=== PATIENT | female | born 1950 | race Caucasian/White ===

== ENCOUNTER 2021-06-14 18:20 | Observation (INO) | payer MEDICARE ==
[2021-06-14] MEDS ORDERED: Pepcid 20 MG VIAL IV ONE ×2 (18:32→18:59)
[2021-06-14] MEDS ORDERED: MORPHINE SULFATE 4 MG INJ IV ONE ×2 (18:32→21:08)
[2021-06-14] MEDS ORDERED: GI COCKTAIL 45 ML (Maalox/Lidocaine) PO ONE (18:32)
[2021-06-14] MEDS ORDERED: BABY ASPIRIN 81 MG CHEW PO ONE (18:32)
[2021-06-14] MEDS ORDERED: Zofran 4 MG/2 ML VIAL IV ONE (18:32)
--- NOTE | 2021-06-14 18:44 | ERPHSYRPT ---
<HOANG RIDDLE - Last Filed: 06/15/21 00:38> - History of Present Illness Time Seen by Provider: 06/14/21 18:25 Allergies/Adverse Reactions: Penicillins Allergy (Verified 06/14/21 18:35) Home Medications: Lisinopril/Hydrochlorothiazide [Lisinopril-Hctz 20-12.5 mg Tab] 1 each PO DAILY 06/14/21 [History] - Progress Progress Note: 06/15/21 00:28 Assumed care of pt at shift change w mid-sternal chest pain described as burn ing. Pt is morbidly obese w a h/o HTN. She states that she has had intermittant chest burning in the past. She denies N/V/diaphoresis/CAD/IN/DM/Tobacco use/Hyperlipidemia. Initial EKG Sinus tach/Normal QT-QTc/Non-specific St-[place] changes. Initial Trop neg but 2nd trop wnl but elevating. 2nd EKG NSR/R90/Flat Tw[place]. Pt's 3rd Trop positive. Pt accepted by Dr. Terry. 06/15/21 00:38 Discussed with : Abisai Counseled pt/family regarding: lab results, diagnosis, rad results - Departure Departure Disposition: Observation Clinical Impression: NSTEMI (non-ST elevated myocardial infarction) Condition: Fair <BREANA BORJA - Last Filed: 06/15/21 19:20> - History of Present Illness Historian: patient Exam Limitations: no limitations Patient Subjective Stated Complaint: Pt c/o of rapid heart rate, burning in the chest and acid reflux Triage Nursing Assessment: Pt brought to the ER by her , hypertensive, tachycardic, rates chest pain or burning as 01/22, denies cardiac history, totally blind, left leg is larger than the right, pain began yesterday but it got worse today, skin n/w/d, pulses normal, no difficulties breathing Physician History: 70 years old morbidly obese female with history of hypertension, legal blindness bilateral presented in the ER with substernal chest pain/burning sensation which was dairies yesterday for a little while and continuous since afternoon today, moderate intensity, nonradiating with associated palpitations/racing of heart without shortness of breath. Patient denies any history of CAD, arrhythmia or any cardiac work-up done in the recent past. Denies any fever chills cough or sick contact. Timing/Duration: today, yesterday, constant, gradual onset, worse Activities at Onset: rest Quality: burning Location: substernal, central Chest Pain Radiation: no radiation Severity of Pain-Max: moderate Severity of Pain-Current: moderate Modifying Factors: Improves With: nothing Associated Symptoms: nausea, No shortness of breath, No cough Prior Chest Pain/Cardiac Workup: no prior chest pain, no prior cardiac workup Nitro Today/Relief: no nitro taken today Aspirin Treatment Today: no aspirin today Travel Risk - International Travel Have you traveled outside of the country in past 3 weeks: No - Coronavirus Screening Are you exhibiting any of the following symptoms?: No Close contact with a COVID-19 positive Pt in past 14-21 Days: No - Vaccine Status Have you recieved a Covid-19 vaccination: No - Review of Systems Constitutional: No Symptoms Eyes: Other Ears, Nose, & Throat: No Symptoms Respiratory: No Symptoms Cardiac: Chest Pain Abdominal/Gastrointestinal: No Symptoms Genitourinary Symptoms: No Symptoms Musculoskeletal: No Symptoms Skin: No Symptoms Neurological: No Symptoms Psychological: No Symptoms Endocrine: No Symptoms Hematologic/Lymphatic: No Symptoms Immunological/Allergic: No Symptoms - Past Medical History Pertinent Past Medical History: Yes Cardiac History: Hypertension Psycho-Social History: Anxiety - Past Surgical History Past Surgical History: Yes Gastrointestinal: Appendectomy, Cholecystectomy Female Surgical History: Hysterectomy - Social History Smoking Status: Never smoker Exposure to second hand smoke: No Drug Use: none Patient Lives Alone: No - Nursing Vital Signs Nursing Vital Signs: Initial Vital Signs Temperature 99.0 F 06/14/21 18:24 Pulse Rate 124 H 06/14/21 18:24 Respiratory Rate 23 06/14/21 18:24 Blood Pressure 193/95 06/14/21 18:24 O2 Sat by Pulse Oximetry 97 06/14/21 18:24 Pain Scale Pain Intensity 2 - Physical Exam General Appearance: no apparent distress, alert Eye Exam: No scleral icterus Ears, Nose, Throat Exam: normal ENT inspection, TMs normal, pharynx normal Neck Exam: normal inspection, non-tender, full range of motion Respiratory Exam: normal breath sounds, lungs clear Cardiovascular Exam: normal heart sounds, tachycardia Gastrointestinal/Abdomen Exam: soft, normal bowel sounds, No tenderness Back Exam: normal inspection, normal range of motion Extremity Exam: normal inspection, normal range of motion Neurologic Exam: alert, oriented x 3, cooperative, normal mood/affect, No fly winder II-XII nml as tested, No motor deficits Skin Exam: normal color SpO2 Interpretation: normal SpO2: 97 O2 Delivery: Room Air - Course EKG Interpreted by Me: RATE ([id number]), Sinus Tach, NORMAL AXIS, NORMAL INTERVALS, N on-specific ST Changes, Other (ST depression in lateral leads) Ordered Tests: Active Orders 24 hr Category Date Time Status Farm Management Teacher STAT Care 06/14/21 18:32 Completed EKG-ER Only STAT Care 06/14/21 18:32 Completed EKG-ER Only STAT Care 06/14/21 23:56 Completed IV Insertion STAT Care 06/14/21 18:32 Completed Heart-Healthy Diet Diet 06/15/21 Breakfast Active CHEST 1 VIEW (PORTABLE) Stat Exams 06/14/21 18:32 Completed CHEST WITHOUT CONTRAST [CT] Stat Exams 06/14/21 20:45 Completed CBC W DIFF Stat Lab 06/14/21 18:45 Completed CK-Creatinine Phosphokinase Stat Lab 06/14/21 18:45 Completed CMP Stat Lab 06/14/21 18:45 Completed D-DIMER QUANTITATIVE Stat Lab 06/14/21 18:45 Completed LIPID PROFILE AM.LAB Lab 06/15/21 05:40 Completed NT PRO BNP Stat Lab 06/14/21 18:45 Completed PROTIME WITH INR Stat Lab 06/15/21 00:37 Completed PTT Stat Lab 06/15/21 00:37 Completed TROPONIN Q3H Lab 06/15/21 02:50 Completed TROPONIN Q3H Lab 06/15/21 05:40 Completed TROPONIN Q3H Lab 06/15/21 09:40 Completed TROPONIN Q3H Lab 06/15/21 13:40 Completed TROPONIN Q3H Lab 06/14/21 18:45 Completed TROPONIN Q3H Lab 06/14/21 20:50 Completed TROPONIN Q3H Lab 06/14/21 23:45 Completed UA W/RFX UR CULTURE Stat Lab 06/15/21 00:42 Completed Pulse Oximetry ROUTINE RT 06/15/21 01:28 Completed Transfer Order Routine Transfer 06/15/21 Completed Medication Summary Generic Name Dose Route Start Last Admin Trade Name Freq PRN Reason Stop Dose Admin Acetaminophen 325 - 650 mg 06/15/21 01:28 06/15/21 07:51 Acetaminophen 325 Mg Tablet PO 07/15/21 01:27 650 mg Q4H PRN PRN Administration FOR TEMP > 101 OR MILD PAIN Alprazolam 0.25 mg 06/15/21 15:19 06/15/21 15:32 Alprazolam 0.25 Mg Tablet PO 07/15/21 15:18 0.25 mg Q8H PRN PRN Administration ANXIETY Aspirin 325 mg 06/15/21 10:00 06/15/21 09:36 Aspirin 325 Mg Tablet.Ec PO 07/15/21 09:59 325 mg DAILY SYD Administration Enoxaparin Sodium 30 mg 06/15/21 19:00 06/15/21 18:12 Enoxaparin Sodium 30 Mg/0.3 Ml Syringe SQ 07/15/21 18:59 30 mg Q24H SYD Administration Sodium Chloride 500 mls @ 20 mls/hr 06/15/21 05:00 06/15/21 05:02 Sodium Chloride 0.9% 500 Ml IV 07/15/21 04:59 20 mls/hr .Q24H SYD Administration Metoprolol Tartrate 12.5 mg 06/15/21 22:00 Metoprolol Tartrate 25 Mg Tab PO 07/15/21 21:59 BID SYD Nitroglycerin 0.4 mg 06/15/21 01:28 Nitroglycerin 0.4 Mg Tablet Bottle SL 07/15/21 01:27 .Q5MIN PRN CHEST PAIN Ondansetron HCl 4 mg 06/15/21 01:28 Ondansetron Hcl 4 Mg/2 Ml Vial IV 07/15/21 01:27 Q4H PRN PRN NAUSEA/VOMITING Discontinued Medications Generic Name Dose Route Start Last Admin Trade Name Freq PRN Reason Stop Dose Admin Acetaminophen 975 mg 06/15/21 00:51 06/15/21 01:17 Acetaminophen 325 Mg Tablet PO 06/15/21 00:52 975 mg STAT STA Administration Acetaminophen Confirm 06/15/21 01:16 Acetaminophen 325 Mg Tablet Administered 06/15/21 01:17 Dose 975 mg .ROUTE .STK-MED ONE Al Hydrox/Mg Hydrox/Simethicone Confirm 06/14/21 19:00 Mag Hydrox/Al Hydrox/Simeth 30 Ml Udcup Administered 06/14/21 19:01 Dose 30 ml .ROUTE .STK-MED ONE Alprazolam 0.25 mg 06/14/21 21:34 06/14/21 21:48 Alprazolam 0.25 Mg Tablet PO 06/14/21 21:35 0.25 mg STAT ONE Administration Alprazolam Confirm 06/14/21 21:35 Alprazolam 0.25 Mg Tablet Administered 06/14/21 21:36 Dose 0.25 mg .ROUTE .STK-MED ONE Aspirin 324 mg 06/14/21 18:32 06/14/21 19:04 Aspirin 81 Mg Tab.Chew PO 06/14/21 18:33 324 mg STAT ONE Administration Aspirin Confirm 06/14/21 18:58 Aspirin 81 Mg Tab.Chew Administered 06/14/21 18:59 Dose 324 mg .ROUTE .STK-MED ONE Famotidine 20 mg 06/14/21 18:32 06/14/21 19:03 Famotidine 20 Mg/1 Vial IV 06/14/21 18:33 20 mg STAT ONE Administration Famotidine Confirm 06/14/21 18:59 Famotidine 20 Mg/1 Vial Administered 06/14/21 19:00 Dose 20 mg IV .STK-MED ONE Heparin Sodium (Beef Lung) 5,000 unit 06/15/21 01:23 06/15/21 01:31 Heparin 5000 Unit/0.5 Ml Syringe IV 06/15/21 01:24 5,000 unit STAT ONE Administration Heparin Sodium (Beef Lung) Confirm 06/15/21 01:25 Heparin 5000 Unit/0.5 Ml Syringe Administered 06/15/21 01:26 Dose 5,000 unit .ROUTE .STK-MED ONE Heparin Sodium/Dextrose Confirm 06/15/21 01:26 Heparin 25,000 Units/D5w 250ml Premix Administered 06/15/21 01:27 Dose 25,000 units in 250 mls @ ud IV .STK-MED ONE Heparin Sodium/Dextrose 25,000 units in 250 mls @ 10 mls/hr 06/15/21 01:30 06/15/21 06:04 Heparin 25,000 Units/D5w 250ml Premix IV 07/15/21 01:29 10 mls/hr .Q24H SYD 10 mls/hr Infusion Lidocaine HCl Confirm 06/14/21 18:59 Lidocaine Hcl Viscous 1 Ml Administered 06/14/21 19:00 Dose 15 ml .ROUTE .STK-MED ONE Magnesium Hydroxide 45 ml 06/14/21 18:32 06/14/21 19:03 Mag Hydrx/Alum Hyd/Simeth/Lido 45 Ml Bottle PO 06/14/21 18:33 45 ml STAT ONE Administration Metoprolol Tartrate 50 mg 06/15/21 01:33 06/15/21 01:40 Metoprolol Tartrate 50 Mg Tablet PO 06/15/21 01:34 50 mg STAT ONE Administration Metoprolol Tartrate Confirm 06/15/21 01:38 Metoprolol Tartrate 50 Mg Tablet Administered 06/15/21 01:39 Dose 50 mg .ROUTE .STK-MED ONE Morphine Sulfate 4 mg 06/14/21 18:32 06/14/21 19:03 Morphine Sulfate 4 Mg/Ml Injection IV 06/14/21 18:33 4 mg STAT ONE Administration Morphine Sulfate Confirm 06/14/21 18:59 Morphine Sulfate 4 Mg/Ml Injection Administered 06/14/21 19:00 Dose 4 mg .ROUTE .STK-MED ONE Morphine Sulfate 4 mg 06/14/21 21:08 06/14/21 21:30 Morphine Sulfate 4 Mg/Ml Injection IV 06/14/21 21:09 Not Given STAT ONE Morphine Sulfate Confirm 06/14/21 21:28 Morphine Sulfate 4 Mg/Ml Injection Administered 06/14/21 21:29 Dose 4 mg .ROUTE .STK-MED ONE Ondansetron HCl 4 mg 06/14/21 18:32 06/14/21 19:03 Ondansetron Hcl 4 Mg/2 Ml Vial IV 06/14/21 18:33 4 mg STAT ONE Administration Ondansetron HCl Confirm 06/14/21 18:58 Ondansetron Hcl 4 Mg/2 Ml Vial Administered 06/14/21 18:59 Dose 4 mg .ROUTE .STK-MED ONE Pantoprazole Sodium 40 mg 06/14/21 21:08 06/14/21 21:31 Pantoprazole 40 Mg Vial IV 06/14/21 21:09 40 mg STAT ONE Administration Pantoprazole Sodium Confirm 06/14/21 21:28 Pantoprazole 40 Mg Vial Administered 06/14/21 21:29 Dose 40 mg IV .STK-MED ONE Tramadol HCl 50 mg 06/15/21 10:51 Tramadol Hcl 50 Mg Tablet PO 07/15/21 10:50 QID PRN PRN PAIN Lab/Rad Data: Laboratory Result Diagrams 06/14/21 18:45 06/14/21 18:45 Laboratory Results 06/15/21 06/15/21 06/15/21 Range/Units 00:42 00:37 00:30 WBC (4.0-10.5) K/mm3 RBC (4.1-5.4) M/mm3 Hgb (12.0-16.0) gm/dl Hct (35-47) % MCV (78-100) fl MCH (26-32) pg MCHC (32-36) g/dl RDW (11.5-14.0) % Plt Count (150-450) K/mm3 MPV (7.5-11.0) fl Gran % (36.0-66.0) % Eos # (Auto) (0-0.5) Absolute Lymphs (auto) (1.0-4.6) Absolute Monos (auto) (0.0-1.3) Lymphocytes % (24.0-44.0) % Monocytes % (0.0-12.0) % Eosinophils % (0.00-5.0) % Basophils % (0.0-0.4) % Absolute Granulocytes (1.4-6.9) Basophils # (0-0.4) PT 11.4 (9.4-12.5) SECONDS INR 0.97 (0.8-3.0) APTT 32.0 (25.1-36.5) SECONDS D-Dimer (215-500) ng/mL Sodium (137-145) mmol/L Potassium (3.5-5.1) mmol/L Chloride (98-107) mmol/L Carbon Dioxide (22-30) mmol/L Anion Gap (5-15) MEQ/L BUN (7-17) mg/dL Creatinine (0.52-1.04) mg/dL Estimated GFR ML/MIN Glucose (74-106) mg/dL Calcium (8.4-10.2) mg/dL Total Bilirubin (0.2-1.3) mg/dL AST (14-36) U/L ALT (0-35) U/L Alkaline Phosphatase (38-126) U/L Creatine Kinase (30-135) U/L Troponin I (0.000-0.034) ng/mL NT-Pro-B Natriuret Pep (0-900) pg/mL Serum Total Protein (6.3-8.2) g/dL Albumin (3.5-5.0) g/dL Urine Color YELLOW (YELLOW) Urine Appearance SLIGHTLY CLOUDY (CLEAR) Urine pH 5.0 (5-6) Ur Specific [place] 1.011 (1.005-1.025) Urine Protein NEGATIVE (Negative) Urine Ketones NEGATIVE (NEGATIVE) Urine Blood NEGATIVE (0-5) Paulo/ul Urine Nitrite NEGATIVE (NEGATIVE) Urine Bilirubin NEGATIVE (NEGATIVE) Urine Urobilinogen NEGATIVE (0-1) mg/dL Ur Leukocyte Esterase NEGATIVE (NEGATIVE) Urine WBC (Auto) 3-5 (0-5) /HPF Urine RBC (Auto) NONE (0-2) /HPF U Epithel Cells (Auto) RARE (FEW) /HPF Urine Bacteria (Auto) RARE (NEGATIVE) /HPF Urine Mucus (Auto) SLIGHT (NEGATIVE) /HPF Urine Culture Reflexed NO (NO) Urine Glucose NEGATIVE (NEGATIVE) mg/dL Influenza Type A Ag NEGATIVE (NEGATIVE) Influenza Type B Ag NEGATIVE (NEGATIVE) RSV (PCR) NEGATIVE (Negative) SARS-CoV-2 (PCR) NEGATIVE (NEGATIVE) 06/14/21 06/14/21 06/14/21 Range/Units 23:45 20:50 18:45 WBC (4.0-10.5) K/mm3 RBC (4.1-5.4) M/mm3 Hgb (12.0-16.0) gm/dl Hct (35-47) % MCV (78-100) fl MCH (26-32) pg MCHC (32-36) g/dl RDW (11.5-14.0) % Plt Count (150-450) K/mm3 MPV (7.5-11.0) fl Gran % (36.0-66.0) % Eos # (Auto) (0-0.5) Absolute Lymphs (auto) (1.0-4.6) Absolute Monos (auto) (0.0-1.3) Lymphocytes % (24.0-44.0) % Monocytes % (0.0-12.0) % Eosinophils % (0.00-5.0) % Basophils % (0.0-0.4) % Absolute Granulocytes (1.4-6.9) Basophils # (0-0.4) PT (9.4-12.5) SECONDS INR (0.8-3.0) APTT (25.1-36.5) SECONDS D-Dimer (215-500) ng/mL Sodium (137-145) mmol/L Potassium (3.5-5.1) mmol/L Chloride (98-107) mmol/L Carbon Dioxide (22-30) mmol/L Anion Gap (5-15) MEQ/L BUN (7-17) mg/dL Creatinine (0.52-1.04) mg/dL Estimated GFR ML/MIN Glucose (74-106) mg/dL Calcium (8.4-10.2) mg/dL Total Bilirubin (0.2-1.3) mg/dL AST (14-36) U/L ALT (0-35) U/L Alkaline Phosphatase (38-126) U/L Creatine Kinase (30-135) U/L Troponin I 0.043 H* 0.018 < 0.012 (0.000-0.034) ng/mL NT-Pro-B Natriuret Pep (0-900) pg/mL Serum Total Protein (6.3-8.2) g/dL Albumin (3.5-5.0) g/dL Urine Color (YELLOW) Urine Appearance (CLEAR) Urine pH (5-6) Ur Specific [place] (1.005-1.025) Urine Protein (Negative) Urine Ketones (NEGATIVE) Urine Blood (0-5) Paulo/ul Urine Nitrite (NEGATIVE) Urine Bilirubin (NEGATIVE) Urine Urobilinogen (0-1) mg/dL Ur Leukocyte Esterase (NEGATIVE) Urine WBC (Auto) (0-5) /HPF Urine RBC (Auto) (0-2) /HPF U Epithel Cells (Auto) (FEW) /HPF Urine Bacteria (Auto) (NEGATIVE) /HPF Urine Mucus (Auto) (NEGATIVE) /HPF Urine Culture Reflexed (NO) Urine Glucose (NEGATIVE) mg/dL Influenza Type A Ag (NEGATIVE) Influenza Type B Ag (NEGATIVE) RSV (PCR) (Negative) SARS-CoV-2 (PCR) (NEGATIVE) 06/14/21 06/14/21 06/14/21 Range/Units 18:45 18:45 18:45 WBC 6.9 (4.0-10.5) K/mm3 RBC 4.33 (4.1-5.4) M/mm3 Hgb 13.5 (12.0-16.0) gm/dl Hct 42.5 (35-47) % MCV 98.2 (78-100) fl MCH 31.2 (26-32) pg MCHC 31.8 L (32-36) g/dl RDW 13.1 (11.5-14.0) % Plt Count 227 (150-450) K/mm3 MPV 10.9 (7.5-11.0) fl Gran % 70.2 H (36.0-66.0) % Eos # (Auto) 0.08 (0-0.5) Absolute Lymphs (auto) 1.46 (1.0-4.6) Absolute Monos (auto) 0.51 (0.0-1.3) Lymphocytes % 21.0 L (24.0-44.0) % Monocytes % 7.3 (0.0-12.0) % Eosinophils % 1.2 (0.00-5.0) % Basophils % 0.3 (0.0-0.4) % Absolute Granulocytes 4.87 (1.4-6.9) Basophils # 0.02 (0-0.4) PT (9.4-12.5) SECONDS INR (0.8-3.0) APTT (25.1-36.5) SECONDS D-Dimer 484 (215-500) ng/mL Sodium 138 (137-145) mmol/L Potassium 4.1 (3.5-5.1) mmol/L Chloride 105 (98-107) mmol/L Carbon Dioxide 22 (22-30) mmol/L Anion Gap 15.4 H (5-15) MEQ/L BUN 26 H (7-17) mg/dL Creatinine 1.94 H (0.52-1.04) mg/dL Estimated GFR 27.2 ML/MIN Glucose 137 H (74-106) mg/dL Calcium 11.6 H (8.4-10.2) mg/dL Total Bilirubin 0.60 (0.2-1.3) mg/dL AST 20 (14-36) U/L ALT 23 (0-35) U/L Alkaline Phosphatase 92 (38-126) U/L Creatine Kinase 54 (30-135) U/L Troponin I (0.000-0.034) ng/mL NT-Pro-B Natriuret Pep 58.5 (0-900) pg/mL Serum Total Protein 6.7 (6.3-8.2) g/dL Albumin 4.5 (3.5-5.0) g/dL Urine Color (YELLOW) Urine Appearance (CLEAR) Urine pH (5-6) Ur Specific [place] (1.005-1.025) Urine Protein (Negative) Urine Ketones (NEGATIVE) Urine Blood (0-5) Paulo/ul Urine Nitrite (NEGATIVE) Urine Bilirubin (NEGATIVE) Urine Urobilinogen (0-1) mg/dL Ur Leukocyte Esterase (NEGATIVE) Urine WBC (Auto) (0-5) /HPF Urine RBC (Auto) (0-2) /HPF U Epithel Cells (Auto) (FEW) /HPF Urine Bacteria (Auto) (NEGATIVE) /HPF Urine Mucus (Auto) (NEGATIVE) /HPF Urine Culture Reflexed (NO) Urine Glucose (NEGATIVE) mg/dL Influenza Type A Ag (NEGATIVE) Influenza Type B Ag (NEGATIVE) RSV (PCR) (Negative) SARS-CoV-2 (PCR) (NEGATIVE) - Progress Progress Note: 06/14/21 18:43 EKG showed sinus tach without any ST elevation, given morphine, aspirin, work-up is pending, care is transferred to Dr. Riddle at shift change. - Departure Departure Disposition: Observation Critical Care Time: No
[2021-06-14] MEDS ORDERED: Zofran 4 MG/2 ML VIAL ONE (18:58)
[2021-06-14] MEDS ORDERED: BABY ASPIRIN 81 MG CHEW ONE (18:58)
[2021-06-14] MEDS ORDERED: MORPHINE SULFATE 4 MG INJ ONE ×2 (18:59→21:28)
[2021-06-14] MEDS ORDERED: XYLOCAINE HCl Viscous ONE (18:59)
[2021-06-14] MEDS ORDERED: MAALOX ES 30 ML UNIT DOSE ONE (19:00)
[2021-06-14 19:03] LABS: Absolute Neutrophil Ct (ANC) 4.87 (1.4-6.9); Basophil (Absolute #) 0.02 (0-0.4); Eosinophil % 1.2 % (0.00-5.0); Eosinophil (Absolute #) 0.08 (0-0.5); Hematocrit 42.5 % (35-47); Hemoglobin 13.5 gm/dl (12.0-16.0); Lymphocyte (Absolute #) 1.46 (1.0-4.6); Mean Cell Volume 98.2 fl (78-100); Mean Corpuscular Hemoglobin 31.2 pg (26-32); Mean Corpuscular Hgb Concent. 31.8 g/dl (32-36); Mean Platelet Volume 10.9 fl (7.5-11.0); Monocyte (Absolute #) 0.51 (0.0-1.3); Monocytes % 7.3 % (0.0-12.0); Neutrophil % 70.2 % (36.0-66.0); Platelet Count 227 K/mm3 (150-450); Red Blood Count 4.33 M/mm3 (4.1-5.4); Red Cell Distribution Width 13.1 % (11.5-14.0); White Blood Count 6.9 K/mm3 (4.0-10.5)
--- NOTE | 2021-06-14 19:08 | XRAY ---
Indication: Chest pain and tachycardia. Comparison: None Portable apical lordotic chest demonstrates lingula round opacity better evaluated with CT. Remaining lungs clear. Heart not enlarged for AP portable technique. Bony thorax intact with mild osteopenia and degenerative changes.
[2021-06-14 19:46] LABS: ALBUMIN 4.5 g/dL (3.5-5.0); ANION GAP 15.4 MEQ/L (5-15); BILIRUBIN,TOTAL 0.6 mg/dL (0.2-1.3); Calcium 11.6 mg/dL (8.4-10.2); Creatinine 1 1.94 mg/dL (0.52-1.04); EST GLOMERULAR FILTRATION RATE 27.2 ML/MIN; NT PRO BNP 58.5 pg/mL (0-900); Potassium 4.1 mmol/L (3.5-5.1); Total Protein 6.7 g/dL (6.3-8.2)
[2021-06-14] MEDS ORDERED: PROTONIX 40 MG IV IV ONE ×2 (21:08→21:28)
[2021-06-14] MEDS ORDERED: xanAX 0.25 MG PO ONE (21:34)
[2021-06-14] MEDS ORDERED: xanAX 0.25 MG ONE (21:35)
--- NOTE | 2021-06-14 21:56 | XRAY ---
Indication: Chest pain and tachycardia. Abnormal chest radiograph. Multiple contiguous axial images obtained through the chest without contrast. Comparison: None Lungs are inflated with a few tiny calcified granulomas bilaterally. No suspicious pulmonary mass, infiltrate, or effusion. Heart not enlarged with prominent left epicardiac fat. Aorta normal in course and caliber. Small mediastinal calcified node. Bony thorax intact with mild ejected changes throughout the spine. No suspicious chest wall mass. Limited upper abdomen demonstrates 3.9 cm right adrenal adenoma. Impression: 1. No acute cardiopulmonary abnormalities or suspicious pulmonary mass/nodule. 2. Lingula opacity seen on chest radiograph probably corresponds to prominent epicardiac fat. 3. Incidental right adrenal adenoma and old granulomatous disease.
[2021-06-15 00:43] LABS: INR 0.97 (0.8-3.0); PROTIME 11.4 SECONDS (9.4-12.5)
[2021-06-15] MEDS ORDERED: TYLENOL 325 MG PO STA (00:51)
[2021-06-15 01:05] LABS: Appearance SLIGHTLY CLOUDY (CLEAR); Bacteria RARE /HPF (NEGATIVE); Bilirubin NEGATIVE (NEGATIVE); Blood NEGATIVE Ery/ul (0-5); Epithelial Cells RARE /HPF (FEW); Glucose NEGATIVE (NEGATIVE); Ketones NEGATIVE (NEGATIVE); Leukocyte Esterase NEGATIVE (NEGATIVE); Mucus SLIGHT /HPF (NEGATIVE); Nitrite NEGATIVE (NEGATIVE); Protein,Urine Dip NEGATIVE (Negative); Specific Gravity 1.011 (1.005-1.025); Urobilinogen NEGATIVE mg/dL (0-1)
[2021-06-15] MEDS ORDERED: TYLENOL 325 MG ONE (01:16)
[2021-06-15 01:22] LABS: INFLUENZA A NEGATIVE (NEGATIVE); INFLUENZA B NEGATIVE (NEGATIVE); RESPIRATORY SYNCTIAL VIRUS NEGATIVE (Negative); SARS-CoV-2 Xpert Express NEGATIVE (NEGATIVE)
[2021-06-15] MEDS ORDERED: Heparin 5000 UNITS/0.5 ML (HIGH RISK MED) IV ONE (01:23)
[2021-06-15] MEDS ORDERED: Heparin 5000 UNITS/0.5 ML (HIGH RISK MED) ONE (01:25)
[2021-06-15] MEDS ORDERED: Heparin 25,000 units/D5W 250ML PREMIX 25,000 UNITS/250 ML BAG IV ONE (01:26)
[2021-06-15] MEDS ORDERED: Zofran 4 MG/2 ML VIAL IV PRN (01:28)
[2021-06-15] MEDS ORDERED: Nitrostat 0.4 MG Tablet SL PRN (01:28)
[2021-06-15] MEDS ORDERED: Heparin 25,000 units/D5W 250ML PREMIX 25,000 UNITS/250 ML BAG IV SCH (01:30)
[2021-06-15] MEDS ORDERED: Lopressor 50 MG PO ONE (01:33)
[2021-06-15] MEDS ORDERED: Lopressor 50 MG ONE (01:38)
[2021-06-15] MEDS ORDERED: Sodium Chloride 0.9% 500 ML 500 ML IV SCH (05:00)
[2021-06-15 07:30] LABS: Risk Ratio 3.5
[2021-06-15] MEDS: TYLENOL 325 MG PO PRN (07:51)
[2021-06-15] MEDS: Ecotrin 325 MG PO SCH (09:36)
[2021-06-15] MEDS ORDERED: ULTRAM 50 MG PO PRN (10:51)
--- NOTE | 2021-06-15 12:06 | PCM.HP ---
History of Present Illness - Chief Complaint Chief Complaint: Chest Pain for 1-2 days History of Present Illness: is a 70 year old female.morbidly obese female with history of hypertension, legal blindness bilateral presented in the ER with substernal chest pain/burning sensation which was dairies yesterday for a little while and continuous since afternoon today, moderate intensity, nonradiating with associated palpitations/racing of heart without shortness of breath. Patient denies any history of CAD, arrhythmia or any cardiac work-up done in the recent past. Denies any fever chills cough or sick contact. Timing/Duration: today, yesterday, constant, gradual onset, worse Activities at Onset: rest Quality: burning Location: substernal, central Chest Pain Radiation: no radiation Severity of Pain-Max: moderate Severity of Pain-Current: moderate Modifying Factors: Improves With: nothing Associated Symptoms: nausea, No shortness of breath, No cough Prior Chest Pain/Cardiac Workup: no prior chest pain, no prior cardiac workup Nitro Today/Relief: no nitro taken today Aspirin Treatment Today: no aspirin today - Review of Systems Constitutional: No Fever, No Chills Eyes: No Symptoms Ears, Nose, & Throat: No Symptoms Respiratory: No Cough, No Short Of Breath Cardiac: Chest Pain, No Edema, No Syncope Abdominal/Gastrointestinal: No Abdominal Pain, No Nausea, No Vomiting, No Diarrhea Genitourinary Symptoms: No Dysuria Musculoskeletal: No Back Pain, No Neck Pain Skin: No Rash Neurological: No Dizziness, No Focal Weakness, No Sensory Changes Psychological: No Symptoms Endocrine: No Symptoms Hematologic/Lymphatic: No Symptoms Immunological/Allergic: No Symptoms Medications & Allergies Home Medications: Home Medication List Lisinopril/Hydrochlorothiazide [Lisinopril-Hctz 20-12.5 mg Tab] 1 each PO DAILY 06/14/21 [History Confirmed 06/14/21] Allergies/Adverse Reactions: Allergies Allergy/AdvReac Type Severity Reaction Status Date / Time Penicillins Allergy Verified 06/14/21 18:35 - Past Medical History Past Medical History: Yes Cardiac History: Hypertension Pyscho-Social History: Anxiety - Female History Are you now?: No - Past Surgical History Past Surgical History: Yes GI Surgical History: Appendectomy, Cholecystectomy Female Surgical History: Hysterectomy - Social History Smoking Status: Never smoker Exposure to second hand smoke: No Alcohol: None Drug Use: none - Physical Exam Vital Signs: Vital Signs - 24 hr Temp Pulse Resp BP Pulse Ox 06/15/21 11:00 66 18 114/70 96 06/15/21 10:00 53 L 15 111/55 95 06/15/21 09:00 58 L 16 114/63 94 L 06/15/21 08:00 97.3 F 62 16 117/58 95 06/15/21 03:27 97.8 F 52 L 16 126/44 95 06/15/21 03:03 99.0 F 54 L 22 124/47 97 06/15/21 02:00 76 18 155/78 97 06/15/21 01:28 64 06/15/21 01:00 93 H 18 141/74 98 06/15/21 00:00 93 H 18 136/83 97 06/14/21 23:00 94 H 24 169/78 99 06/14/21 22:00 101 H 18 123/93 97 06/14/21 21:00 108 H 20 160/100 97 06/14/21 19:26 111 H 20 162/93 97 06/14/21 18:50 97 06/14/21 18:24 99.0 F 124 H 23 193/95 97 General Appearance: no apparent distress, alert Neurologic Exam: alert, oriented x 3, cooperative, normal mood/affect, nml cerebellar function, nml station & gait, sensation nml, No motor deficits Eye Exam: PERRL/EOMI, eyes nml inspection Ears, Nose, Throat Exam: normal ENT inspection, TMs normal, pharynx normal, moist mucous membranes Neck Exam: normal inspection, non-tender, supple, full range of motion Respiratory Exam: normal breath sounds, lungs clear, No respiratory distress Cardiovascular Exam: regular rate/rhythm, normal heart sounds, normal peripheral pulses Gastrointestinal/Abdomen Exam: soft, normal bowel sounds, No tenderness, No mass Back Exam: normal inspection, normal range of motion, No CVA tenderness, No vertebral tenderness Extremity Exam: normal inspection, normal range of motion, pelvis stable Skin Exam: normal color, warm, dry, No rash Lymphatic Exam: No adenopathy Results - Labs Lab/Micro Results: Lab Results-Last 24 Hours 06/14/21 06/14/21 06/14/21 Range/Units 18:45 18:45 18:45 WBC 6.9 (4.0-10.5) K/mm3 RBC 4.33 (4.1-5.4) M/mm3 Hgb 13.5 (12.0-16.0) gm/dl Hct 42.5 (35-47) % MCV 98.2 (78-100) fl MCH 31.2 (26-32) pg MCHC 31.8 L (32-36) g/dl RDW 13.1 (11.5-14.0) % Plt Count 227 (150-450) K/mm3 MPV 10.9 (7.5-11.0) fl Gran % 70.2 H (36.0-66.0) % Eos # (Auto) 0.08 (0-0.5) Absolute Lymphs (auto) 1.46 (1.0-4.6) Absolute Monos (auto) 0.51 (0.0-1.3) Lymphocytes % 21.0 L (24.0-44.0) % Monocytes % 7.3 (0.0-12.0) % Eosinophils % 1.2 (0.00-5.0) % Basophils % 0.3 (0.0-0.4) % Absolute Granulocytes 4.87 (1.4-6.9) Basophils # 0.02 (0-0.4) PT (9.4-12.5) SECONDS INR (0.8-3.0) APTT (25.1-36.5) SECONDS D-Dimer 484 (215-500) ng/mL Sodium 138 (137-145) mmol/L Potassium 4.1 (3.5-5.1) mmol/L Chloride 105 (98-107) mmol/L Carbon Dioxide 22 (22-30) mmol/L Anion Gap 15.4 H (5-15) MEQ/L BUN 26 H (7-17) mg/dL Creatinine 1.94 H (0.52-1.04) mg/dL Estimated GFR 27.2 ML/MIN Glucose 137 H (74-106) mg/dL Calcium 11.6 H (8.4-10.2) mg/dL Total Bilirubin 0.60 (0.2-1.3) mg/dL AST 20 (14-36) U/L ALT 23 (0-35) U/L Alkaline Phosphatase 92 (38-126) U/L Creatine Kinase 54 (30-135) U/L Troponin I (0.000-0.034) ng/mL NT-Pro-B Natriuret Pep 58.5 (0-900) pg/mL Serum Total Protein 6.7 (6.3-8.2) g/dL Albumin 4.5 (3.5-5.0) g/dL Triglycerides (30-150) mg/dL Cholesterol (50-200) mg/dL LDL Cholesterol (30-100) mg/dL HDL Cholesterol (40-60) mg/dL Heart Disease Risk Ratio Urine Color (YELLOW) Urine Appearance (CLEAR) Urine pH (5-6) Ur Specific [place] (1.005-1.025) Urine Protein (Negative) Urine Ketones (NEGATIVE) Urine Blood (0-5) Paulo/ul Urine Nitrite (NEGATIVE) Urine Bilirubin (NEGATIVE) Urine Urobilinogen (0-1) mg/dL Ur Leukocyte Esterase (NEGATIVE) Urine WBC (Auto) (0-5) /HPF Urine RBC (Auto) (0-2) /HPF U Epithel Cells (Auto) (FEW) /HPF Urine Bacteria (Auto) (NEGATIVE) /HPF Urine Mucus (Auto) (NEGATIVE) /HPF Urine Culture Reflexed (NO) Urine Glucose (NEGATIVE) mg/dL Influenza Type A Ag (NEGATIVE) Influenza Type B Ag (NEGATIVE) RSV (PCR) (Negative) SARS-CoV-2 (PCR) (NEGATIVE) 06/14/21 06/14/21 06/14/21 Range/Units 18:45 20:50 23:45 WBC (4.0-10.5) K/mm3 RBC (4.1-5.4) M/mm3 Hgb (12.0-16.0) gm/dl Hct (35-47) % MCV (78-100) fl MCH (26-32) pg MCHC (32-36) g/dl RDW (11.5-14.0) % Plt Count (150-450) K/mm3 MPV (7.5-11.0) fl Gran % (36.0-66.0) % Eos # (Auto) (0-0.5) Absolute Lymphs (auto) (1.0-4.6) Absolute Monos (auto) (0.0-1.3) Lymphocytes % (24.0-44.0) % Monocytes % (0.0-12.0) % Eosinophils % (0.00-5.0) % Basophils % (0.0-0.4) % Absolute Granulocytes (1.4-6.9) Basophils # (0-0.4) PT (9.4-12.5) SECONDS INR (0.8-3.0) APTT (25.1-36.5) SECONDS D-Dimer (215-500) ng/mL Sodium (137-145) mmol/L Potassium (3.5-5.1) mmol/L Chloride (98-107) mmol/L Carbon Dioxide (22-30) mmol/L Anion Gap (5-15) MEQ/L BUN (7-17) mg/dL Creatinine (0.52-1.04) mg/dL Estimated GFR ML/MIN Glucose (74-106) mg/dL Calcium (8.4-10.2) mg/dL Total Bilirubin (0.2-1.3) mg/dL AST (14-36) U/L ALT (0-35) U/L Alkaline Phosphatase (38-126) U/L Creatine Kinase (30-135) U/L Troponin I < 0.012 0.018 0.043 H* (0.000-0.034) ng/mL NT-Pro-B Natriuret Pep (0-900) pg/mL Serum Total Protein (6.3-8.2) g/dL Albumin (3.5-5.0) g/dL Triglycerides (30-150) mg/dL Cholesterol (50-200) mg/dL LDL Cholesterol (30-100) mg/dL HDL Cholesterol (40-60) mg/dL Heart Disease Risk Ratio Urine Color (YELLOW) Urine Appearance (CLEAR) Urine pH (5-6) Ur Specific [place] (1.005-1.025) Urine Protein (Negative) Urine Ketones (NEGATIVE) Urine Blood (0-5) Paulo/ul Urine Nitrite (NEGATIVE) Urine Bilirubin (NEGATIVE) Urine Urobilinogen (0-1) mg/dL Ur Leukocyte Esterase (NEGATIVE) Urine WBC (Auto) (0-5) /HPF Urine RBC (Auto) (0-2) /HPF U Epithel Cells (Auto) (FEW) /HPF Urine Bacteria (Auto) (NEGATIVE) /HPF Urine Mucus (Auto) (NEGATIVE) /HPF Urine Culture Reflexed (NO) Urine Glucose (NEGATIVE) mg/dL Influenza Type A Ag (NEGATIVE) Influenza Type B Ag (NEGATIVE) RSV (PCR) (Negative) SARS-CoV-2 (PCR) (NEGATIVE) 06/15/21 06/15/21 06/15/21 Range/Units 00:30 00:37 00:42 WBC (4.0-10.5) K/mm3 RBC (4.1-5.4) M/mm3 Hgb (12.0-16.0) gm/dl Hct (35-47) % MCV (78-100) fl MCH (26-32) pg MCHC (32-36) g/dl RDW (11.5-14.0) % Plt Count (150-450) K/mm3 MPV (7.5-11.0) fl Gran % (36.0-66.0) % Eos # (Auto) (0-0.5) Absolute Lymphs (auto) (1.0-4.6) Absolute Monos (auto) (0.0-1.3) Lymphocytes % (24.0-44.0) % Monocytes % (0.0-12.0) % Eosinophils % (0.00-5.0) % Basophils % (0.0-0.4) % Absolute Granulocytes (1.4-6.9) Basophils # (0-0.4) PT 11.4 (9.4-12.5) SECONDS INR 0.97 (0.8-3.0) APTT 32.0 (25.1-36.5) SECONDS D-Dimer (215-500) ng/mL Sodium (137-145) mmol/L Potassium (3.5-5.1) mmol/L Chloride (98-107) mmol/L Carbon Dioxide (22-30) mmol/L Anion Gap (5-15) MEQ/L BUN (7-17) mg/dL Creatinine (0.52-1.04) mg/dL Estimated GFR ML/MIN Glucose (74-106) mg/dL Calcium (8.4-10.2) mg/dL Total Bilirubin (0.2-1.3) mg/dL AST (14-36) U/L ALT (0-35) U/L Alkaline Phosphatase (38-126) U/L Creatine Kinase (30-135) U/L Troponin I (0.000-0.034) ng/mL NT-Pro-B Natriuret Pep (0-900) pg/mL Serum Total Protein (6.3-8.2) g/dL Albumin (3.5-5.0) g/dL Triglycerides (30-150) mg/dL Cholesterol (50-200) mg/dL LDL Cholesterol (30-100) mg/dL HDL Cholesterol (40-60) mg/dL Heart Disease Risk Ratio Urine Color YELLOW (YELLOW) Urine Appearance SLIGHTLY CLOUDY (CLEAR) Urine pH 5.0 (5-6) Ur Specific [place] 1.011 (1.005-1.025) Urine Protein NEGATIVE (Negative) Urine Ketones NEGATIVE (NEGATIVE) Urine Blood NEGATIVE (0-5) Paulo/ul Urine Nitrite NEGATIVE (NEGATIVE) Urine Bilirubin NEGATIVE (NEGATIVE) Urine Urobilinogen NEGATIVE (0-1) mg/dL Ur Leukocyte Esterase NEGATIVE (NEGATIVE) Urine WBC (Auto) 3-5 (0-5) /HPF Urine RBC (Auto) NONE (0-2) /HPF U Epithel Cells (Auto) RARE (FEW) /HPF Urine Bacteria (Auto) RARE (NEGATIVE) /HPF Urine Mucus (Auto) SLIGHT (NEGATIVE) /HPF Urine Culture Reflexed NO (NO) Urine Glucose NEGATIVE (NEGATIVE) mg/dL Influenza Type A Ag NEGATIVE (NEGATIVE) Influenza Type B Ag NEGATIVE (NEGATIVE) RSV (PCR) NEGATIVE (Negative) SARS-CoV-2 (PCR) NEGATIVE (NEGATIVE) 06/15/21 06/15/21 06/15/21 Range/Units 02:50 05:40 05:40 WBC (4.0-10.5) K/mm3 RBC (4.1-5.4) M/mm3 Hgb (12.0-16.0) gm/dl Hct (35-47) % MCV (78-100) fl MCH (26-32) pg MCHC (32-36) g/dl RDW (11.5-14.0) % Plt Count (150-450) K/mm3 MPV (7.5-11.0) fl Gran % (36.0-66.0) % Eos # (Auto) (0-0.5) Absolute Lymphs (auto) (1.0-4.6) Absolute Monos (auto) (0.0-1.3) Lymphocytes % (24.0-44.0) % Monocytes % (0.0-12.0) % Eosinophils % (0.00-5.0) % Basophils % (0.0-0.4) % Absolute Granulocytes (1.4-6.9) Basophils # (0-0.4) PT (9.4-12.5) SECONDS INR (0.8-3.0) APTT (25.1-36.5) SECONDS D-Dimer (215-500) ng/mL Sodium (137-145) mmol/L Potassium (3.5-5.1) mmol/L Chloride (98-107) mmol/L Carbon Dioxide (22-30) mmol/L Anion Gap (5-15) MEQ/L BUN (7-17) mg/dL Creatinine (0.52-1.04) mg/dL Estimated GFR ML/MIN Glucose (74-106) mg/dL Calcium (8.4-10.2) mg/dL Total Bilirubin (0.2-1.3) mg/dL AST (14-36) U/L ALT (0-35) U/L Alkaline Phosphatase (38-126) U/L Creatine Kinase (30-135) U/L Troponin I 0.061 H* 0.076 H* (0.000-0.034) ng/mL NT-Pro-B Natriuret Pep (0-900) pg/mL Serum Total Protein (6.3-8.2) g/dL Albumin (3.5-5.0) g/dL Triglycerides 128 (30-150) mg/dL Cholesterol 166 (50-200) mg/dL LDL Cholesterol 88 (30-100) mg/dL HDL Cholesterol 47 (40-60) mg/dL Heart Disease Risk Ratio 3.5 Urine Color (YELLOW) Urine Appearance (CLEAR) Urine pH (5-6) Ur Specific [place] (1.005-1.025) Urine Protein (Negative) Urine Ketones (NEGATIVE) Urine Blood (0-5) Paulo/ul Urine Nitrite (NEGATIVE) Urine Bilirubin (NEGATIVE) Urine Urobilinogen (0-1) mg/dL Ur Leukocyte Esterase (NEGATIVE) Urine WBC (Auto) (0-5) /HPF Urine RBC (Auto) (0-2) /HPF U Epithel Cells (Auto) (FEW) /HPF Urine Bacteria (Auto) (NEGATIVE) /HPF Urine Mucus (Auto) (NEGATIVE) /HPF Urine Culture Reflexed (NO) Urine Glucose (NEGATIVE) mg/dL Influenza Type A Ag (NEGATIVE) Influenza Type B Ag (NEGATIVE) RSV (PCR) (Negative) SARS-CoV-2 (PCR) (NEGATIVE) 06/15/21 06/15/21 06/15/21 Range/Units 05:40 09:40 09:40 WBC (4.0-10.5) K/mm3 RBC (4.1-5.4) M/mm3 Hgb (12.0-16.0) gm/dl Hct (35-47) % MCV (78-100) fl MCH (26-32) pg MCHC (32-36) g/dl RDW (11.5-14.0) % Plt Count (150-450) K/mm3 MPV (7.5-11.0) fl Gran % (36.0-66.0) % Eos # (Auto) (0-0.5) Absolute Lymphs (auto) (1.0-4.6) Absolute Monos (auto) (0.0-1.3) Lymphocytes % (24.0-44.0) % Monocytes % (0.0-12.0) % Eosinophils % (0.00-5.0) % Basophils % (0.0-0.4) % Absolute Granulocytes (1.4-6.9) Basophils # (0-0.4) PT (9.4-12.5) SECONDS INR (0.8-3.0) APTT 143.7 H* 67.3 H (25.1-36.5) SECONDS D-Dimer (215-500) ng/mL Sodium (137-145) mmol/L Potassium (3.5-5.1) mmol/L Chloride (98-107) mmol/L Carbon Dioxide (22-30) mmol/L Anion Gap (5-15) MEQ/L BUN (7-17) mg/dL Creatinine (0.52-1.04) mg/dL Estimated GFR ML/MIN Glucose (74-106) mg/dL Calcium (8.4-10.2) mg/dL Total Bilirubin (0.2-1.3) mg/dL AST (14-36) U/L ALT (0-35) U/L Alkaline Phosphatase (38-126) U/L Creatine Kinase (30-135) U/L Troponin I 0.058 H* (0.000-0.034) ng/mL NT-Pro-B Natriuret Pep (0-900) pg/mL Serum Total Protein (6.3-8.2) g/dL Albumin (3.5-5.0) g/dL Triglycerides (30-150) mg/dL Cholesterol (50-200) mg/dL LDL Cholesterol (30-100) mg/dL HDL Cholesterol (40-60) mg/dL Heart Disease Risk Ratio Urine Color (YELLOW) Urine Appearance (CLEAR) Urine pH (5-6) Ur Specific [place] (1.005-1.025) Urine Protein (Negative) Urine Ketones (NEGATIVE) Urine Blood (0-5) Paulo/ul Urine Nitrite (NEGATIVE) Urine Bilirubin (NEGATIVE) Urine Urobilinogen (0-1) mg/dL Ur Leukocyte Esterase (NEGATIVE) Urine WBC (Auto) (0-5) /HPF Urine RBC (Auto) (0-2) /HPF U Epithel Cells (Auto) (FEW) /HPF Urine Bacteria (Auto) (NEGATIVE) /HPF Urine Mucus (Auto) (NEGATIVE) /HPF Urine Culture Reflexed (NO) Urine Glucose (NEGATIVE) mg/dL Influenza Type A Ag (NEGATIVE) Influenza Type B Ag (NEGATIVE) RSV (PCR) (Negative) SARS-CoV-2 (PCR) (NEGATIVE) - Radiology Impressions Radiology Exams & Impressions: Radiology Procedures Category Date Time Status CHEST 1 VIEW (PORTABLE) Stat Exams 06/14/21 18:32 Completed CHEST WITHOUT CONTRAST [CT] Stat Exams 06/14/21 20:45 Completed - Other Procedures and Tests Respiratory Therapy 06/16/21 05:00 EKG DAILY 06/17/21 05:00 EKG DAILY 06/18/21 05:00 EKG DAILY Assessment/Plan (1) NSTEMI (non-ST elevated myocardial infarction) Current Visit: Yes Status: Acute Assessment & Plan: Chief Complaint Diagnosis Chest Pain for 1-2 days Allergies Allergy/AdvReac Type Severity Reaction Status Date / Time Penicillins Allergy Verified 06/14/21 18:35 Vital Signs (Last 24 hours) Temp Pulse Resp BP Pulse Ox 06/15/21 11:00 66 18 114/70 96 06/15/21 10:00 53 L 15 111/55 95 06/15/21 09:00 58 L 16 114/63 94 L 06/15/21 08:00 97.3 F 62 16 117/58 95 06/15/21 03:27 97.8 F 52 L 16 126/44 95 06/15/21 03:03 99.0 F 54 L 22 124/47 97 06/15/21 02:00 76 18 155/78 97 06/15/21 01:28 64 06/15/21 01:00 93 H 18 141/74 98 06/15/21 00:00 93 H 18 136/83 97 06/14/21 23:00 94 H 24 169/78 99 06/14/21 22:00 101 H 18 123/93 97 06/14/21 21:00 108 H 20 160/100 97 06/14/21 19:26 111 H 20 162/93 97 06/14/21 18:50 97 06/14/21 18:24 99.0 F 124 H 23 193/95 97 Home Medications Medication Instructions Recorded Confirmed Last Taken Type Lisinopril/Hydrochlorothiazide 1 each PO DAILY 06/14/21 06/14/21 06/14/21 History [Lisinopril-Hctz 20-12.5 mg Tab] Current Medications Generic Name Dose Route Start Last Admin Trade Name Jose Rafael PRN Reason Stop Dose Admin Acetaminophen 325 - 650 mg 06/15/21 01:28 06/15/21 07:51 Acetaminophen 325 Mg Tablet PO 07/15/21 01:27 650 mg Q4H PRN PRN Administration FOR TEMP > 101 OR MILD PAIN Aspirin 325 mg 06/15/21 10:00 06/15/21 09:36 Aspirin 325 Mg Tablet.Ec PO 07/15/21 09:59 325 mg DAILY SYD Administration Heparin Sodium/Dextrose 25,000 units in 250 mls @ 10 mls/hr 06/15/21 01:30 06/15/21 06:04 Heparin 25,000 Units/D5w 250ml Premix IV 07/15/21 01:29 10 mls/hr .Q24H SYD 10 mls/hr Infusion Sodium Chloride 500 mls @ 20 mls/hr 06/15/21 05:00 06/15/21 05:02 Sodium Chloride 0.9% 500 Ml IV 07/15/21 04:59 20 mls/hr .Q24H SYD Administration Nitroglycerin 0.4 mg 06/15/21 01:28 Nitroglycerin 0.4 Mg Tablet Bottle SL 07/15/21 01:27 .Q5MIN PRN CHEST PAIN Ondansetron HCl 4 mg 06/15/21 01:28 Ondansetron Hcl 4 Mg/2 Ml Vial IV 07/15/21 01:27 Q4H PRN PRN NAUSEA/VOMITING Discontinued Medications Generic Name Dose Route Start Last Admin Trade Name Freq PRN Reason Stop Dose Admin Acetaminophen 975 mg 06/15/21 00:51 06/15/21 01:17 Acetaminophen 325 Mg Tablet PO 06/15/21 00:52 975 mg STAT STA Administration Acetaminophen Confirm 06/15/21 01:16 Acetaminophen 325 Mg Tablet Administered 06/15/21 01:17 Dose 975 mg .ROUTE .STK-MED ONE Al Hydrox/Mg Hydrox/Simethicone Confirm 06/14/21 19:00 Mag Hydrox/Al Hydrox/Simeth 30 Ml Udcup Administered 06/14/21 19:01 Dose 30 ml .ROUTE .STK-MED ONE Alprazolam 0.25 mg 06/14/21 21:34 06/14/21 21:48 Alprazolam 0.25 Mg Tablet PO 06/14/21 21:35 0.25 mg STAT ONE Administration Alprazolam Confirm 06/14/21 21:35 Alprazolam 0.25 Mg Tablet Administered 06/14/21 21:36 Dose 0.25 mg .ROUTE .STK-MED ONE Aspirin 324 mg 06/14/21 18:32 06/14/21 19:04 Aspirin 81 Mg Tab.Chew PO 06/14/21 18:33 324 mg STAT ONE Administration Aspirin Confirm 06/14/21 18:58 Aspirin 81 Mg Tab.Chew Administered 06/14/21 18:59 Dose 324 mg .ROUTE .STK-MED ONE Famotidine 20 mg 06/14/21 18:32 06/14/21 19:03 Famotidine 20 Mg/1 Vial IV 06/14/21 18:33 20 mg STAT ONE Administration Famotidine Confirm 06/14/21 18:59 Famotidine 20 Mg/1 Vial Administered 06/14/21 19:00 Dose 20 mg IV .STK-MED ONE Heparin Sodium (Beef Lung) 5,000 unit 06/15/21 01:23 06/15/21 01:31 Heparin 5000 Unit/0.5 Ml Syringe IV 06/15/21 01:24 5,000 unit STAT ONE Administration Heparin Sodium (Beef Lung) Confirm 06/15/21 01:25 Heparin 5000 Unit/0.5 Ml Syringe Administered 06/15/21 01:26 Dose 5,000 unit .ROUTE .STK-MED ONE Heparin Sodium/Dextrose Confirm 06/15/21 01:26 Heparin 25,000 Units/D5w 250ml Premix Administered 06/15/21 01:27 Dose 25,000 units in 250 mls @ ud IV .STK-MED ONE Lidocaine HCl Confirm 06/14/21 18:59 Lidocaine Hcl Viscous 1 Ml Administered 06/14/21 19:00 Dose 15 ml .ROUTE .STK-MED ONE Magnesium Hydroxide 45 ml 06/14/21 18:32 06/14/21 19:03 Mag Hydrx/Alum Hyd/Simeth/Lido 45 Ml Bottle PO 06/14/21 18:33 45 ml STAT ONE Administration Metoprolol Tartrate 50 mg 06/15/21 01:33 06/15/21 01:40 Metoprolol Tartrate 50 Mg Tablet PO 06/15/21 01:34 50 mg STAT ONE Administration Metoprolol Tartrate Confirm 06/15/21 01:38 Metoprolol Tartrate 50 Mg Tablet Administered 06/15/21 01:39 Dose 50 mg .ROUTE .STK-MED ONE Morphine Sulfate 4 mg 06/14/21 18:32 06/14/21 19:03 Morphine Sulfate 4 Mg/Ml Injection IV 06/14/21 18:33 4 mg STAT ONE Administration Morphine Sulfate Confirm 06/14/21 18:59 Morphine Sulfate 4 Mg/Ml Injection Administered 06/14/21 19:00 Dose 4 mg .ROUTE .STK-MED ONE Morphine Sulfate 4 mg 06/14/21 21:08 06/14/21 21:30 Morphine Sulfate 4 Mg/Ml Injection IV 06/14/21 21:09 Not Given STAT ONE Morphine Sulfate Confirm 06/14/21 21:28 Morphine Sulfate 4 Mg/Ml Injection Administered 06/14/21 21:29 Dose 4 mg .ROUTE .STK-MED ONE Ondansetron HCl 4 mg 06/14/21 18:32 06/14/21 19:03 Ondansetron Hcl 4 Mg/2 Ml Vial IV 06/14/21 18:33 4 mg STAT ONE Administration Ondansetron HCl Confirm 06/14/21 18:58 Ondansetron Hcl 4 Mg/2 Ml Vial Administered 06/14/21 18:59 Dose 4 mg .ROUTE .STK-MED ONE Pantoprazole Sodium 40 mg 06/14/21 21:08 06/14/21 21:31 Pantoprazole 40 Mg Vial IV 06/14/21 21:09 40 mg STAT ONE Administration Pantoprazole Sodium Confirm 06/14/21 21:28 Pantoprazole 40 Mg Vial Administered 06/14/21 21:29 Dose 40 mg IV .STK-MED ONE Tramadol HCl 50 mg 06/15/21 10:51 Tramadol Hcl 50 Mg Tablet PO 07/15/21 10:50 QID PRN PRN PAIN Intake & Output (Last 24 hours) 06/13/21 06/14/21 06/15/21 06/16/21 11:59 11:59 11:59 11:59 Intake Total 300 Output Total 700 Balance -400 Weight 143.2 kg Laboratory Results (Last 24 hours) 06/15/21 06/15/21 06/15/21 09:40 09:40 05:40 WBC RBC Hgb Hct MCV MCH MCHC RDW Plt Count MPV Gran % Eos # (Auto) Absolute Lymphs (auto) Absolute Monos (auto) Lymphocytes % Monocytes % Eosinophils % Basophils % Absolute Granulocytes Basophils # PT INR APTT 67.3 H 143.7 H* D-Dimer Sodium Potassium Chloride Carbon Dioxide Anion Gap BUN Creatinine Estimated GFR Glucose Calcium Total Bilirubin AST ALT Alkaline Phosphatase Creatine Kinase Troponin I 0.058 H* NT-Pro-B Natriuret Pep Serum Total Protein Albumin Triglycerides Cholesterol LDL Cholesterol HDL Cholesterol Heart Disease Risk Ratio Urine Color Urine Appearance Urine pH Ur Specific [place] Urine Protein Urine Ketones Urine Blood Urine Nitrite Urine Bilirubin Urine Urobilinogen Ur Leukocyte Esterase Urine WBC (Auto) Urine RBC (Auto) U Epithel Cells (Auto) Urine Bacteria (Auto) Urine Mucus (Auto) Urine Culture Reflexed Urine Glucose Influenza Type A Ag Influenza Type B Ag RSV (PCR) SARS-CoV-2 (PCR) 06/15/21 06/15/21 06/15/21 05:40 05:40 02:50 WBC RBC Hgb Hct MCV MCH MCHC RDW Plt Count MPV Gran % Eos # (Auto) Absolute Lymphs (auto) Absolute Monos (auto) Lymphocytes % Monocytes % Eosinophils % Basophils % Absolute Granulocytes Basophils # PT INR APTT D-Dimer Sodium Potassium Chloride Carbon Dioxide Anion Gap BUN Creatinine Estimated GFR Glucose Calcium Total Bilirubin AST ALT Alkaline Phosphatase Creatine Kinase Troponin I 0.076 H* 0.061 H* NT-Pro-B Natriuret Pep Serum Total Protein Albumin Triglycerides 128 Cholesterol 166 LDL Cholesterol 88 HDL Cholesterol 47 Heart Disease Risk Ratio 3.5 Urine Color Urine Appearance Urine pH Ur Specific [place] Urine Protein Urine Ketones Urine Blood Urine Nitrite Urine Bilirubin Urine Urobilinogen Ur Leukocyte Esterase Urine WBC (Auto) Urine RBC (Auto) U Epithel Cells (Auto) Urine Bacteria (Auto) Urine Mucus (Auto) Urine Culture Reflexed Urine Glucose Influenza Type A Ag Influenza Type B Ag RSV (PCR) SARS-CoV-2 (PCR) 06/15/21 06/15/21 06/15/21 00:42 00:37 00:30 WBC RBC Hgb Hct MCV MCH MCHC RDW Plt Count MPV Gran % Eos # (Auto) Absolute Lymphs (auto) Absolute Monos (auto) Lymphocytes % Monocytes % Eosinophils % Basophils % Absolute Granulocytes Basophils # PT 11.4 INR 0.97 APTT 32.0 D-Dimer Sodium Potassium Chloride Carbon Dioxide Anion Gap BUN Creatinine Estimated GFR Glucose Calcium Total Bilirubin AST ALT Alkaline Phosphatase Creatine Kinase Troponin I NT-Pro-B Natriuret Pep Serum Total Protein Albumin Triglycerides Cholesterol LDL Cholesterol HDL Cholesterol Heart Disease Risk Ratio Urine Color YELLOW Urine Appearance SLIGHTLY CLOUDY Urine pH 5.0 Ur Specific [place] 1.011 Urine Protein NEGATIVE Urine Ketones NEGATIVE Urine Blood NEGATIVE Urine Nitrite NEGATIVE Urine Bilirubin NEGATIVE Urine Urobilinogen NEGATIVE Ur Leukocyte Esterase NEGATIVE Urine WBC (Auto) 3-5 Urine RBC (Auto) NONE U Epithel Cells (Auto) RARE Urine Bacteria (Auto) RARE Urine Mucus (Auto) SLIGHT Urine Culture Reflexed NO Urine Glucose NEGATIVE Influenza Type A Ag NEGATIVE Influenza Type B Ag NEGATIVE RSV (PCR) NEGATIVE SARS-CoV-2 (PCR) NEGATIVE 06/14/21 06/14/21 06/14/21 23:45 20:50 18:45 WBC RBC Hgb Hct MCV MCH MCHC RDW Plt Count MPV Gran % Eos # (Auto) Absolute Lymphs (auto) Absolute Monos (auto) Lymphocytes % Monocytes % Eosinophils % Basophils % Absolute Granulocytes Basophils # PT INR APTT D-Dimer Sodium Potassium Chloride Carbon Dioxide Anion Gap BUN Creatinine Estimated GFR Glucose Calcium Total Bilirubin AST ALT Alkaline Phosphatase Creatine Kinase Troponin I 0.043 H* 0.018 < 0.012 NT-Pro-B Natriuret Pep Serum Total Protein Albumin Triglycerides Cholesterol LDL Cholesterol HDL Cholesterol Heart Disease Risk Ratio Urine Color Urine Appearance Urine pH Ur Specific [place] Urine Protein Urine Ketones Urine Blood Urine Nitrite Urine Bilirubin Urine Urobilinogen Ur Leukocyte Esterase Urine WBC (Auto) Urine RBC (Auto) U Epithel Cells (Auto) Urine Bacteria (Auto) Urine Mucus (Auto) Urine Culture Reflexed Urine Glucose Influenza Type A Ag Influenza Type B Ag RSV (PCR) SARS-CoV-2 (PCR) 06/14/21 06/14/21 06/14/21 18:45 18:45 18:45 WBC 6.9 RBC 4.33 Hgb 13.5 Hct 42.5 MCV 98.2 MCH 31.2 MCHC 31.8 L RDW 13.1 Plt Count 227 MPV 10.9 Gran % 70.2 H Eos # (Auto) 0.08 Absolute Lymphs (auto) 1.46 Absolute Monos (auto) 0.51 Lymphocytes % 21.0 L Monocytes % 7.3 Eosinophils % 1.2 Basophils % 0.3 Absolute Granulocytes 4.87 Basophils # 0.02 PT INR APTT D-Dimer 484 Sodium 138 Potassium 4.1 Chloride 105 Carbon Dioxide 22 Anion Gap 15.4 H BUN 26 H Creatinine 1.94 H Estimated GFR 27.2 Glucose 137 H Calcium 11.6 H Total Bilirubin 0.60 AST 20 ALT 23 Alkaline Phosphatase 92 Creatine Kinase 54 Troponin I NT-Pro-B Natriuret Pep 58.5 Serum Total Protein 6.7 Albumin 4.5 Triglycerides Cholesterol LDL Cholesterol HDL Cholesterol Heart Disease Risk Ratio Urine Color Urine Appearance Urine pH Ur Specific [place] Urine Protein Urine Ketones Urine Blood Urine Nitrite Urine Bilirubin Urine Urobilinogen Ur Leukocyte Esterase Urine WBC (Auto) Urine RBC (Auto) U Epithel Cells (Auto) Urine Bacteria (Auto) Urine Mucus (Auto) Urine Culture Reflexed Urine Glucose Influenza Type A Ag Influenza Type B Ag RSV (PCR) SARS-CoV-2 (PCR) Orders (Last 24 hours) Category Date Time Status Bedrest with BRP/BSC TOLERATED Activity 06/15/21 01:28 Active 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 CONTINUOUS Care 06/15/21 01:28 Active 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 STAT Care 06/14/21 18:32 Completed Code Status Order ROUTINE Care 06/15/21 01:28 Active EKG-ER Only STAT Care 06/14/21 18:32 Completed EKG-ER Only STAT Care 06/14/21 23:56 Completed IV Care Q6H Care 06/15/21 01:28 Active IV Insertion STAT Care 06/14/21 18:32 Completed Implement Chest Pain Pathway ROUTINE Care 06/15/21 01:[address] in Observation ROUTINE Care 06/15/21 01:28 Active Weight,Daily 0600 Care 06/15/21 01:28 Active Consult Cardiology ROUTINE Cons 06/15/21 11:02 Active Front Desk Host/Discharge Plan ROUTINE Cons 06/15/21 04:05 Active Heart-Healthy Diet Diet 06/15/21 Breakfast Active CHEST 1 VIEW (PORTABLE) Stat Exams 06/14/21 18:32 Completed CHEST WITHOUT CONTRAST [CT] Stat Exams 06/14/21 20:45 Completed CBC W DIFF Stat Lab 06/14/21 18:45 Completed CK-Creatinine Phosphokinase Stat Lab 06/14/21 18:45 Completed CMP Stat Lab 06/14/21 18:45 Completed D-DIMER QUANTITATIVE Stat Lab 06/14/21 18:45 Completed LIPID PROFILE AM.LAB Lab 06/15/21 05:40 Completed NT PRO BNP Stat Lab 06/14/21 18:45 Completed PROTIME WITH INR Stat Lab 06/15/21 00:37 Completed PTT Stat Lab 06/15/21 00:37 Completed PTT Urgent Lab 06/15/21 05:40 Completed PTT Urgent Lab 06/15/21 09:40 Completed PTT Urgent Lab 06/15/21 13:30 Ordered PTT Urgent Lab 06/15/21 17:30 Ordered PTT Urgent Lab 06/15/21 21:30 Ordered PTT Urgent Lab 06/16/21 01:30 Ordered PTT Urgent Lab 06/16/21 05:30 Ordered PTT Urgent Lab 06/16/21 09:30 Ordered TROPONIN Q3H Lab 06/15/21 02:50 Completed TROPONIN Q3H Lab 06/15/21 05:40 Completed TROPONIN Q3H Lab 06/15/21 09:40 Completed TROPONIN Q3H Lab 06/15/21 10:30 Ordered TROPONIN Q3H Lab 06/15/21 13:30 Ordered TROPONIN Q3H Lab 06/14/21 18:45 Completed TROPONIN Q3H Lab 06/14/21 20:50 Completed TROPONIN Q3H Lab 06/14/21 23:45 Completed UA W/RFX UR CULTURE Stat Lab 06/15/21 00:42 Completed ALPRAZolam 0.25 MG [xanAX 0.25 MG] Med 06/14/21 21:35 Discontinued 0.25 mg .ROUTE .STK-MED ONE ALPRAZolam 0.25 MG [xanAX 0.25 MG] Med 06/14/21 21:34 Discontinued 0.25 mg PO STAT ONE Acetaminophen 325 mg [Tylenol 325 mg] Med 06/15/21 01:28 Active 325 - 650 mg PO Q4H PRN PRN Acetaminophen 325 mg [Tylenol 325 mg] Med 06/15/21 01:16 Discontinued 975 mg .ROUTE .STK-MED ONE Acetaminophen 325 mg [Tylenol 325 mg] Med 06/15/21 00:51 Discontinued 975 mg PO STAT STA Aspirin 81 gm Chew [Baby Aspirin 81 mg Chew] Med 06/14/21 18:58 Discontinued 324 mg .ROUTE .STK-MED ONE Aspirin 81 gm Chew [Baby Aspirin 81 mg Chew] Med 06/14/21 18:32 Discontinued 324 mg PO STAT ONE Aspirin EC 325 mg [Ecotrin 325 MG] Med 06/15/21 10:00 Active 325 mg PO DAILY Famotidine 20 mg Vial [Pepcid 20 MG VIAL] Med 06/14/21 18:59 Discontinued 20 mg IV .STK-MED ONE Famotidine 20 mg Vial [Pepcid 20 MG VIAL] Med 06/14/21 18:32 Discontinued 20 mg IV STAT ONE Heparin 25,000 units/D5W 250ml [Heparin 25,000 units/ Med 06/15/21 01:30 Active D5W 250ML PREMIX] 25,000 units in 250 ml IV 10 mls/hr Heparin 25,000 units/D5W 250ml [Heparin 25,000 units/ Med 06/15/21 01:26 Discontinued D5W 250ML PREMIX] 25,000 units in 250 ml IV UD Heparin 5000 Units/0.5 ml [Heparin 5000 UNITS/0.5 ML Med 06/15/21 01:25 Discontinued (HIGH RISK MED)] 5,000 unit .ROUTE .STK-MED ONE Heparin 5000 Units/0.5 ml [Heparin 5000 UNITS/0.5 ML Med 06/15/21 01:23 Discontinued (HIGH RISK MED)] 5,000 unit IV STAT ONE Lidocaine HCl Viscous [XYLOCAINE HCl Viscous *] Med 06/14/21 18:59 Discontinued 15 ml .ROUTE .STK-MED ONE Mag Hydrox/Al Hydrox/Simeth [Maalox Es 30 ml Unit Med 06/14/21 19:00 Discontinued Dose] 30 ml .ROUTE .STK-MED ONE Mag Hydrx/Alum Hyd/Simeth/Lido [GI COCKTAIL 45 ML ( Med 06/14/21 18:32 Discontinued Maalox/Lidocaine)] 45 ml PO STAT ONE Metoprolol Tartrate 50 mg [Lopressor 50 MG] Med 06/15/21 01:38 Discontinued 50 mg .ROUTE .STK-MED ONE Metoprolol Tartrate 50 mg [Lopressor 50 MG] Med 06/15/21 01:33 Discontinued 50 mg PO STAT ONE Morphine Sulfate 4 mg Inj Med 06/14/21 18:59 Discontinued 4 mg .ROUTE .STK-MED ONE Morphine Sulfate 4 mg Inj Med 06/14/21 21:28 Discontinued 4 mg .ROUTE .STK-MED ONE Morphine Sulfate 4 mg Inj Med 06/14/21 18:32 Discontinued 4 mg IV STAT ONE Morphine Sulfate 4 mg Inj Med 06/14/21 21:08 Discontinued 4 mg IV STAT ONE NaCl 0.9% 500 ml [Sodium Chloride 0.9% 500 ML] 500 ml Med 06/15/21 05:00 Active IV 20 mls/hr Nitroglycerin 0.4 mg Tablet [Nitrostat 0.4 MG Tablet Med 06/15/21 01:28 Active ] 0.4 mg SL .Q5MIN PRN Ondansetron HCl 4 mg/2 ml [Zofran 4 MG/2 ML VIAL] Med 06/14/21 18:58 Discontinued 4 mg .ROUTE .STK-MED ONE Ondansetron HCl 4 mg/2 ml [Zofran 4 MG/2 ML VIAL] Med 06/15/21 01:28 Active 4 mg IV Q4H PRN PRN Ondansetron HCl 4 mg/2 ml [Zofran 4 MG/2 ML VIAL] Med 06/14/21 18:32 Discontinued 4 mg IV STAT ONE Pantoprazole 40 mg [Protonix 40 mg IV] Med 06/14/21 21:28 Discontinued 40 mg IV .STK-MED ONE Pantoprazole 40 mg [Protonix 40 mg IV] Med 06/14/21 21:08 Discontinued 40 mg IV STAT ONE Tramadol HCl 50 mg [Ultram 50 mg] Med 06/15/21 10:51 Discontinued 50 mg PO QID PRN PRN EKG DAILY RT 06/16/21 05:00 Active EKG DAILY RT 06/17/21 05:00 Active EKG DAILY RT 06/18/21 05:00 Active EKG Q8HX2,QAMX3,PRN RT 06/15/21 01:28 Completed EKG ROUTINE RT 06/15/21 07:56 Completed Pulse Oximetry ROUTINE RT 06/15/21 01:28 Completed Transfer Order Routine Transfer 06/15/21 Completed Patient Care Notes (Last 24 hours) 06/15/21 11:48 Nursing Note by Gracy Garland called back and stated he would be here later today to round on patient for a new consult. Initialized on 06/15/21 11:48 - END OF NOTE 06/15/21 11:36 Nursing Note by Gracy Garland I called 's office to let him know about a consult on the floor. They are paging him. Initialized on 06/15/21 11:36 - END OF NOTE 06/15/21 10:13 Nursing Note by Shawna Nixon PTT 67.3. No change in heparin gtt Initialized on 06/15/21 10:13 - END OF NOTE 06/15/21 08:30 (created 06/15/21 08:42) Nursing Note by Shawna Nixon Heparin gtt turned back on at 0830 at 800units/hr. (8ml/hr) Initialized on 06/15/21 08:42 - END OF NOTE 06/15/21 07:30 (created 06/15/21 07:53) Nursing Note by Shawna Nixon Lab called with PTT 143.7. Heparin gtt off x 1 hr per protocol Initialized on 06/15/21 07:53 - END OF NOTE Code(s): I21.4 - NON-ST ELEVATION (NSTEMI) MYOCARDIAL INFARCTION
[2021-06-15] MEDS ORDERED: xanAX 0.25 MG PO PRN (15:19)
[2021-06-15] MEDS ORDERED: ENOXAPARIN SODIUM SQ SCH (19:00)
[2021-06-15] MEDS: Lopressor 25MG Tab PO SCH (21:50)
[2021-06-16] MEDS: TYLENOL 325 MG PO PRN (02:00)
[2021-06-16 05:10] VITALS: O2SAT 96
--- NOTE | 2021-06-16 08:31 | PCM.NOTE ---
Date and Time: 06/16/21829 Subjective Assessment: doing better - Review of Systems Constitutional: No Fever, No Chills Eyes: No Symptoms Ears, Nose, & Throat: No Symptoms Respiratory: No Cough, No Short Of Breath Cardiac: No Chest Pain, No Edema, No Syncope Abdominal/Gastrointestinal: No Abdominal Pain, No Nausea, No Vomiting, No Diarrhea Genitourinary Symptoms: No Dysuria Musculoskeletal: No Back Pain, No Neck Pain Skin: No Rash Neurological: No Dizziness, No Focal Weakness, No Sensory Changes Psychological: No Symptoms Endocrine: No Symptoms Hematologic/Lymphatic: No Symptoms Immunological/Allergic: No Symptoms Objective Exam General Appearance: no apparent distress, alert Neurologic Exam: alert, oriented x 3, cooperative, normal mood/affect, nml cerebellar function, sensation nml, No motor deficits Skin Exam: normal color, warm, dry Eye Exam: PERRL, EOMI, eyes nml inspection Ears, Nose, Throat Exam: normal ENT inspection, pharynx normal, moist mucous membranes Neck Exam: normal inspection, non-tender, supple, full range of motion Respiratory Exam: normal breath sounds, lungs clear, No respiratory distress Cardiovascular Exam: regular rate/rhythm, normal heart sounds Gastrointestinal/Abdomen Exam: soft, No tenderness, No mass Extremity Exam: normal inspection, normal range of motion Back Exam: normal inspection, normal range of motion, No CVA tenderness, No vertebral tenderness Pelvic Exam: deferred Rectal Exam: deferred OBJECTIVE DATA Vital Signs: Vital Signs - 24 hr Temp Pulse Resp BP Pulse Ox 06/16/21 05:00 97.3 F 58 L 19 95/43 96 06/16/21 00:00 97.1 F 66 16 98/65 97 06/15/21 23:49 19 06/15/21 20:00 98.3 F 64 19 106/46 97 06/15/21 19:20 97 06/15/21 15:58 96.8 F 62 16 143/76 95 06/15/21 15:00 68 20 138/70 92 L 06/15/21 14:00 58 L 17 142/71 96 06/15/21 12:51 63 22 110/56 94 L 06/15/21 12:00 97.5 F 65 20 103/52 96 06/15/21 11:00 66 18 114/70 96 06/15/21 10:00 53 L 15 111/55 95 06/15/21 09:00 58 L 16 114/63 94 L Pain Assessment - Last Documented Pain Intensity 0 Pain Scale Used FLACC Intake and Output: Intake & Output 06/13/21 06/14/21 06/15/21 06/16/21 11:59 11:59 11:59 11:59 Intake Total 300 830 Output Total 700 1550 Balance -400 -720 Weight 143.2 kg 143.8 kg Lab Results: Lab Results-Last 24 Hours 06/15/21 06/15/21 06/15/21 Range/Units 09:40 09:40 13:40 APTT 67.3 H (25.1-36.5) SECONDS Troponin I 0.058 H* 0.038 H* (0.000-0.034) ng/mL TSH 3rd Generation (0.47-4.68) mIU/L 06/15/21 06/15/21 Range/Units 13:40 13:40 APTT 60.5 H (25.1-36.5) SECONDS Troponin I (0.000-0.034) ng/mL TSH 3rd Generation 1.430 (0.47-4.68) mIU/L Radiology Exams: Radiology Procedures Category Date Time Status CHEST 1 VIEW (PORTABLE) Stat Exams 06/14/21 18:32 Completed CHEST WITHOUT CONTRAST [CT] Stat Exams 06/14/21 20:45 Completed ECHO W/2D AND DOPPLER [US] Routine Exams 06/17/21 07:00 Ordered Assessment/Plan (1) NSTEMI (non-ST elevated myocardial infarction) Current Visit: Yes Status: Resolved Assessment & Plan: Chief Complaint Diagnosis Chest Pain for 1-2 days Allergies Allergy/AdvReac Type Severity Reaction Status Date / Time Penicillins Allergy Verified 06/14/21 18:35 Vital Signs (Last 24 hours) Temp Pulse Resp BP Pulse Ox 06/16/21 05:00 97.3 F 58 L 19 95/43 96 06/16/21 00:00 97.1 F 66 16 98/65 97 06/15/21 23:49 19 06/15/21 20:00 98.3 F 64 19 106/46 97 06/15/21 19:20 97 06/15/21 15:58 96.8 F 62 16 143/76 95 06/15/21 15:00 68 20 138/70 92 L 06/15/21 14:00 58 L 17 142/71 96 06/15/21 12:51 63 22 110/56 94 L 06/15/21 12:00 97.5 F 65 20 103/52 96 06/15/21 11:00 66 18 114/70 96 06/15/21 10:00 53 L 15 111/55 95 06/15/21 09:00 58 L 16 114/63 94 L Home Medications Medication Instructions Recorded Confirmed Last Taken Type Lisinopril/Hydrochlorothiazide 1 each PO DAILY 06/14/21 06/14/21 06/14/21 History [Lisinopril-Hctz 20-12.5 mg Tab] Current Medications Generic Name Dose Route Start Last Admin Trade Name Freq PRN Reason Stop Dose Admin Acetaminophen 325 - 650 mg 06/15/21 01:28 06/16/21 02:00 Acetaminophen 325 Mg Tablet PO 07/15/21 01:27 650 mg Q4H PRN PRN Administration FOR TEMP > 101 OR MILD PAIN Alprazolam 0.25 mg 06/15/21 15:19 06/15/21 15:32 Alprazolam 0.25 Mg Tablet PO 07/15/21 15:18 0.25 mg Q8H PRN PRN Administration ANXIETY Aspirin 325 mg 06/15/21 10:00 06/15/21 09:36 Aspirin 325 Mg Tablet.Ec PO 07/15/21 09:59 325 mg DAILY SYD Administration Enoxaparin Sodium 30 mg 06/15/21 19:00 06/15/21 18:12 Enoxaparin Sodium 30 Mg/0.3 Ml Syringe SQ 07/15/21 18:59 30 mg Q24H SYD Administration Metoprolol Tartrate 12.5 mg 06/15/21 22:00 06/15/21 21:50 Metoprolol Tartrate 25 Mg Tab PO 07/15/21 21:59 Not Given BID SYD Nitroglycerin 0.4 mg 06/15/21 01:28 Nitroglycerin 0.4 Mg Tablet Bottle SL 07/15/21 01:27 .Q5MIN PRN CHEST PAIN Ondansetron HCl 4 mg 06/15/21 01:28 Ondansetron Hcl 4 Mg/2 Ml Vial IV 07/15/21 01:27 Q4H PRN PRN NAUSEA/VOMITING Discontinued Medications Generic Name Dose Route Start Last Admin Trade Name Jose Rafael PRN Reason Stop Dose Admin Acetaminophen 975 mg 06/15/21 00:51 06/15/21 01:17 Acetaminophen 325 Mg Tablet PO 06/15/21 00:52 975 mg STAT STA Administration Acetaminophen Confirm 06/15/21 01:16 Acetaminophen 325 Mg Tablet Administered 06/15/21 01:17 Dose 975 mg .ROUTE .STK-MED ONE Al Hydrox/Mg Hydrox/Simethicone Confirm 06/14/21 19:00 Mag Hydrox/Al Hydrox/Simeth 30 Ml Udcup Administered 06/14/21 19:01 Dose 30 ml .ROUTE .STK-MED ONE Alprazolam 0.25 mg 06/14/21 21:34 06/14/21 21:48 Alprazolam 0.25 Mg Tablet PO 06/14/21 21:35 0.25 mg STAT ONE Administration Alprazolam Confirm 06/14/21 21:35 Alprazolam 0.25 Mg Tablet Administered 06/14/21 21:36 Dose 0.25 mg .ROUTE .STK-MED ONE Aspirin 324 mg 06/14/21 18:32 06/14/21 19:04 Aspirin 81 Mg Tab.Chew PO 06/14/21 18:33 324 mg STAT ONE Administration Aspirin Confirm 06/14/21 18:58 Aspirin 81 Mg Tab.Chew Administered 06/14/21 18:59 Dose 324 mg .ROUTE .STK-MED ONE Famotidine 20 mg 06/14/21 18:32 06/14/21 19:03 Famotidine 20 Mg/1 Vial IV 06/14/21 18:33 20 mg STAT ONE Administration Famotidine Confirm 06/14/21 18:59 Famotidine 20 Mg/1 Vial Administered 06/14/21 19:00 Dose 20 mg IV .STK-MED ONE Heparin Sodium (Beef Lung) 5,000 unit 06/15/21 01:23 06/15/21 01:31 Heparin 5000 Unit/0.5 Ml Syringe IV 06/15/21 01:24 5,000 unit STAT ONE Administration Heparin Sodium (Beef Lung) Confirm 06/15/21 01:25 Heparin 5000 Unit/0.5 Ml Syringe Administered 06/15/21 01:26 Dose 5,000 unit .ROUTE .STK-MED ONE Heparin Sodium/Dextrose Confirm 06/15/21 01:26 Heparin 25,000 Units/D5w 250ml Premix Administered 06/15/21 01:27 Dose 25,000 units in 250 mls @ ud IV .STK-MED ONE Heparin Sodium/Dextrose 25,000 units in 250 mls @ 10 mls/hr 06/15/21 01:30 06/15/21 06:04 Heparin 25,000 Units/D5w 250ml Premix IV 07/15/21 01:29 10 mls/hr .Q24H SYD 10 mls/hr Infusion Sodium Chloride 500 mls @ 20 mls/hr 06/15/21 05:00 06/15/21 05:02 Sodium Chloride 0.9% 500 Ml IV 07/15/21 04:59 20 mls/hr .Q24H SYD Administration Lidocaine HCl Confirm 06/14/21 18:59 Lidocaine Hcl Viscous 1 Ml Administered 06/14/21 19:00 Dose 15 ml .ROUTE .STK-MED ONE Magnesium Hydroxide 45 ml 06/14/21 18:32 06/14/21 19:03 Mag Hydrx/Alum Hyd/Simeth/Lido 45 Ml Bottle PO 06/14/21 18:33 45 ml STAT ONE Administration Metoprolol Tartrate 50 mg 06/15/21 01:33 06/15/21 01:40 Metoprolol Tartrate 50 Mg Tablet PO 06/15/21 01:34 50 mg STAT ONE Administration Metoprolol Tartrate Confirm 06/15/21 01:38 Metoprolol Tartrate 50 Mg Tablet Administered 06/15/21 01:39 Dose 50 mg .ROUTE .STK-MED ONE Morphine Sulfate 4 mg 06/14/21 18:32 06/14/21 19:03 Morphine Sulfate 4 Mg/Ml Injection IV 06/14/21 18:33 4 mg STAT ONE Administration Morphine Sulfate Confirm 06/14/21 18:59 Morphine Sulfate 4 Mg/Ml Injection Administered 06/14/21 19:00 Dose 4 mg .ROUTE .STK-MED ONE Morphine Sulfate 4 mg 06/14/21 21:08 06/14/21 21:30 Morphine Sulfate 4 Mg/Ml Injection IV 06/14/21 21:09 Not Given STAT ONE Morphine Sulfate Confirm 06/14/21 21:28 Morphine Sulfate 4 Mg/Ml Injection Administered 06/14/21 21:29 Dose 4 mg .ROUTE .STK-MED ONE Ondansetron HCl 4 mg 12/31/21 18:32 06/14/21 19:03 Ondansetron Hcl 4 Mg/2 Ml Vial IV 06/14/21 18:33 4 mg STAT ONE Administration Ondansetron HCl Confirm 06/14/21 18:58 Ondansetron Hcl 4 Mg/2 Ml Vial Administered 06/14/21 18:59 Dose 4 mg .ROUTE .STK-MED ONE Pantoprazole Sodium 40 mg 06/14/21 21:08 06/14/21 21:31 Pantoprazole 40 Mg Vial IV 06/14/21 21:09 40 mg STAT ONE Administration Pantoprazole Sodium Confirm 06/14/21 21:28 Pantoprazole 40 Mg Vial Administered 06/14/21 21:29 Dose 40 mg IV .STK-MED ONE Tramadol HCl 50 mg 06/15/21 10:51 Tramadol Hcl 50 Mg Tablet PO 07/15/21 10:50 QID PRN PRN PAIN Intake & Output (Last 24 hours) 06/13/21 06/14/21 06/15/21 06/16/21 11:59 11:59 11:59 11:59 Intake Total 300 830 Output Total 700 1550 Balance -400 -720 Weight 143.2 kg 143.8 kg Laboratory Results (Last 24 hours) 06/15/21 06/15/21 06/15/21 13:40 13:40 13:40 APTT 60.5 H Troponin I 0.038 H* TSH 3rd Generation 1.430 06/15/21 06/15/21 09:40 09:40 APTT 67.3 H Troponin I 0.058 H* TSH 3rd Generation Orders (Last 24 hours) Category Date Time Status Consult Cardiology ROUTINE Cons 06/15/21 11:02 Completed ECHO W/2D AND DOPPLER [US] Routine Exams 06/17/21 07:00 Ordered PTT Urgent Lab 06/15/21 09:40 Completed PTT Urgent Lab 06/15/21 13:40 Completed TROPONIN Q3H Lab 06/15/21 09:40 Completed TROPONIN Q3H Lab 06/15/21 13:40 Completed TSH, 3RD Generation Urgent Lab 06/15/21 13:40 Completed ALPRAZolam 0.25 MG [xanAX 0.25 MG] Med 06/15/21 15:19 Active 0.25 mg PO Q8H PRN PRN Aspirin EC 325 mg [Ecotrin 325 MG] Med 06/15/21 10:00 Active 325 mg PO DAILY Enoxaparin Sodium [Enoxaparin Sodium] Med 06/15/21 19:00 Active 30 mg SQ Q24H Metoprolol Tartrate 25 mg [Lopressor 25MG Tab] Med 06/15/21 22:00 Active 12.5 mg PO BID Tramadol HCl 50 mg [Ultram 50 mg] Med 06/15/21 10:51 Discontinued 50 mg PO QID PRN PRN EKG DAILY RT 06/16/21 05:00 Completed EKG DAILY RT 06/17/21 05:00 Active EKG DAILY RT 06/18/21 05:00 Active EKG ROUTINE RT 06/15/21 07:56 Completed Patient Care Notes (Last 24 hours) 06/15/21 15:00 (created 06/15/21 15:42) Nursing Note by Gracy Garland Patient was made MSOF. Initialized on 06/15/21 15:42 - END OF NOTE 06/15/21 15:00 (created 06/15/21 18:52) Nursing Note by Shawna Nixon Heparin gtt stopped per MD order Initialized on 06/15/21 18:52 - END OF NOTE 06/15/21 14:54 (created 06/15/21 14:50) Nursing Note by Gracy Garland is here rounding on patient now. Initialized on 06/15/21 14:50 - END OF NOTE 06/15/21 14:20 Nursing Note by Shawna Nixon PTT 60.5 No change in heparin gtt. Initialized on 06/15/21 14:20 - END OF NOTE 06/15/21 11:48 Nursing Note by Gracy Garland called back and stated he would be here later today to round on patient for a new consult. Initialized on 06/15/21 11:48 - END OF NOTE 06/15/21 11:36 Nursing Note by Gracy Garland I called 's office to let him know about a consult on the floor. They are paging him. Initialized on 06/15/21 11:36 - END OF NOTE 06/15/21 10:13 Nursing Note by Shawna Nixon PTT 67.3. No change in heparin gtt Initialized on 06/15/21 10:13 - END OF NOTE Code(s): I21.4 - NON-ST ELEVATION (NSTEMI) MYOCARDIAL INFARCTION
[2021-06-16] MEDS: Ecotrin 325 MG PO SCH (10:17)
[2021-06-16] MEDS: Lopressor 25MG Tab PO SCH (10:17)
--- NOTE | 2021-06-16 10:53 | PCM.DS ---
Discharge Summary Date of Admission: 06/15/21 02:16 Admitting Physician: ESTEFANI HAJI Consults: Consults on Case 06/15/21 11:02 Consult Cardiology ROUTINE Primary Care Provider: JONA MILTON Allergies Allergies Penicillins Allergy (Verified 06/14/21 18:35) Hospital Summary - Hospital Course Hospital Course: Chief Complaint Diagnosis Chest Pain for 1-2 days Allergies Allergy/AdvReac Type Severity Reaction Status Date / Time Penicillins Allergy Verified 06/14/21 18:35 Vital Signs (Last 24 hours) Temp Pulse Resp BP Pulse Ox 06/16/21 09:00 96.9 F 66 18 96 06/16/21 05:00 97.3 F 58 L 19 95/43 96 06/16/21 00:00 97.1 F 66 16 98/65 97 06/15/21 23:49 19 06/15/21 20:00 98.3 F 64 19 106/46 97 06/15/21 19:20 97 06/15/21 15:58 96.8 F 62 16 143/76 95 06/15/21 15:00 68 20 138/70 92 L 06/15/21 14:00 58 L 17 142/71 96 06/15/21 12:51 63 22 110/56 94 L 06/15/21 12:00 97.5 F 65 20 103/52 96 06/15/21 11:00 66 18 114/70 96 Home Medications Medication Instructions Recorded Confirmed Last Taken Type Lisinopril/Hydrochlorothiazide 1 each PO DAILY 06/14/21 06/14/21 06/14/21 H istory [Lisinopril-Hctz 20-12.5 mg Tab] Current Medications Generic Name Dose Route Start Last Admin Trade Name Freq PRN Reason Stop Dose Admin Acetaminophen 325 - 650 mg 06/15/21 01:28 06/16/21 02:00 Acetaminophen 325 Mg Tablet PO 07/15/21 01:27 650 mg Q4H PRN PRN Administration FOR TEMP > 101 OR MILD PAIN Alprazolam 0.25 mg 06/15/21 15:19 06/15/21 15:32 Alprazolam 0.25 Mg Tablet PO 07/15/21 15:18 0.25 mg Q8H PRN PRN Administration ANXIETY Aspirin 325 mg 06/15/21 10:00 06/16/21 10:17 Aspirin 325 Mg Tablet.Ec PO 07/15/21 09:59 325 mg DAILY SYD Administration Enoxaparin Sodium 30 mg 06/15/21 19:00 06/15/21 18:12 Enoxaparin Sodium 30 Mg/0.3 Ml Syringe SQ 07/15/21 18:59 30 mg Q24H SYD Administration Metoprolol Tartrate 12.5 mg 06/15/21 22:00 06/16/21 10:17 Metoprolol Tartrate 25 Mg Tab PO 07/15/21 21:59 Not Given BID SYD Nitroglycerin 0.4 mg 06/15/21 01:28 Nitroglycerin 0.4 Mg Tablet Bottle SL 07/15/21 01:27 .Q5MIN PRN CHEST PAIN Ondansetron HCl 4 mg 06/15/21 01:28 Ondansetron Hcl 4 Mg/2 Ml Vial IV 07/15/21 01:27 Q4H PRN PRN NAUSEA/VOMITING Discontinued Medications Generic Name Dose Route Start Last Admin Trade Name Freq PRN Reason Stop Dose Admin Acetaminophen 975 mg 06/15/21 00:51 06/15/21 01:17 Acetaminophen 325 Mg Tablet PO 06/15/21 00:52 975 mg STAT STA Administration Acetaminophen Confirm 06/15/21 01:16 Acetaminophen 325 Mg Tablet Administered 06/15/21 01:17 Dose 975 mg .ROUTE .STK-MED ONE Al Hydrox/Mg Hydrox/Simethicone Confirm 06/14/21 19:00 Mag Hydrox/Al Hydrox/Simeth 30 Ml Udcup Administered 06/14/21 19:01 Dose 30 ml .ROUTE .STK-MED ONE Alprazolam 0.25 mg 06/14/21 21:34 06/14/21 21:48 Alprazolam 0.25 Mg Tablet PO 06/14/21 21:35 0.25 mg STAT ONE Administration Alprazolam Confirm 06/14/21 21:35 Alprazolam 0.25 Mg Tablet Administered 06/14/21 21:36 Dose 0.25 mg .ROUTE .STK-MED ONE Aspirin 324 mg 06/14/21 18:32 06/14/21 19:04 Aspirin 81 Mg Tab.Chew PO 06/14/21 18:33 324 mg STAT ONE Administration Aspirin Confirm 06/14/21 18:58 Aspirin 81 Mg Tab.Chew Administered 06/14/21 18:59 Dose 324 mg .ROUTE .STK-MED ONE Famotidine 20 mg 06/14/21 18:32 06/14/21 19:03 Famotidine 20 Mg/1 Vial IV 06/14/21 18:33 20 mg STAT ONE Administration Famotidine Confirm 06/14/21 18:59 Famotidine 20 Mg/1 Vial Administered 06/14/21 19:00 Dose 20 mg IV .STK-MED ONE Heparin Sodium (Beef Lung) 5,000 unit 06/15/21 01:23 06/15/21 01:31 Heparin 5000 Unit/0.5 Ml Syringe IV 06/15/21 01:24 5,000 unit STAT ONE Administration Heparin Sodium (Beef Lung) Confirm 06/15/21 01:25 Heparin 5000 Unit/0.5 Ml Syringe Administered 06/15/21 01:26 Dose 5,000 unit .ROUTE .STK-MED ONE Heparin Sodium/Dextrose Confirm 06/15/21 01:26 Heparin 25,000 Units/D5w 250ml Premix Administered 06/15/21 01:27 Dose 25,000 units in 250 mls @ ud IV .STK-MED ONE Heparin Sodium/Dextrose 25,000 units in 250 mls @ 10 mls/hr 06/15/21 01:30 06/15/21 06:04 Heparin 25,000 Units/D5w 250ml Premix IV 07/15/21 01:29 10 mls/hr .Q24H SYD 10 mls/hr Infusion Sodium Chloride 500 mls @ 20 mls/hr 06/15/21 05:00 06/15/21 05:02 Sodium Chloride 0.9% 500 Ml IV 07/15/21 04:59 20 mls/hr .Q24H SYD Administration Lidocaine HCl Confirm 06/14/21 18:59 Lidocaine Hcl Viscous 1 Ml Administered 06/14/21 19:00 Dose 15 ml .ROUTE .STK-MED ONE Magnesium Hydroxide 45 ml 06/14/21 18:32 06/14/21 19:03 Mag Hydrx/Alum Hyd/Simeth/Lido 45 Ml Bottle PO 06/14/21 18:33 45 ml STAT ONE Administration Metoprolol Tartrate 50 mg 06/15/21 01:33 06/15/21 01:40 Metoprolol Tartrate 50 Mg Tablet PO 06/15/21 01:34 50 mg STAT ONE Administration Metoprolol Tartrate Confirm 06/15/21 01:38 Metoprolol Tartrate 50 Mg Tablet Administered 06/15/21 01:39 Dose 50 mg .ROUTE .STK-MED ONE Morphine Sulfate 4 mg 06/14/21 18:32 06/14/21 19:03 Morphine Sulfate 4 Mg/Ml Injection IV 06/14/21 18:33 4 mg STAT ONE Administration Morphine Sulfate Confirm 06/14/21 18:59 Morphine Sulfate 4 Mg/Ml Injection Administered 06/14/21 19:00 Dose 4 mg .ROUTE .STK-MED ONE Morphine Sulfate 4 mg 06/14/21 21:08 06/14/21 21:30 Morphine Sulfate 4 Mg/Ml Injection IV 06/14/21 21:09 Not Given STAT ONE Morphine Sulfate Confirm 06/14/21 21:28 Morphine Sulfate 4 Mg/Ml Injection Administered 06/14/21 21:29 Dose 4 mg .ROUTE .STK-MED ONE Ondansetron HCl 4 mg 06/14/21 18:32 06/14/21 19:03 Ondansetron Hcl 4 Mg/2 Ml Vial IV 06/14/21 18:33 4 mg STAT ONE Administration Ondansetron HCl Confirm 06/14/21 18:58 Ondansetron Hcl 4 Mg/2 Ml Vial Administered 06/14/21 18:59 Dose 4 mg .ROUTE .STK-MED ONE Pantoprazole Sodium 40 mg 06/14/21 21:08 06/14/21 21:31 Pantoprazole 40 Mg Vial IV 06/14/21 21:09 40 mg STAT ONE Administration Pantoprazole Sodium Confirm 06/14/21 21:28 Pantoprazole 40 Mg Vial Administered 06/14/21 21:29 Dose 40 mg IV .STK-MED ONE Tramadol HCl 50 mg 06/15/21 10:51 Tramadol Hcl 50 Mg Tablet PO 07/15/21 10:50 QID PRN PRN PAIN Intake & Output (Last 24 hours) 06/13/21 06/14/21 06/15/21 06/16/21 11:59 11:59 11:59 11:59 Intake Total 300 830 Output Total 700 1550 Balance -400 -720 Weight 143.2 kg 143.8 kg Laboratory Results (Last 24 hours) 06/15/21 06/15/2122 13:40 13:40 13:40 APTT 60.5 H Troponin I 0.038 H* TSH 3rd Generation 1.430 Orders (Last 24 hours) Category Date Time Status Consult Cardiology ROUTINE Cons 06/15/21 11:02 Completed ECHO W/2D AND DOPPLER [US] Routine Exams 06/17/21 07:00 Ordered PTT Urgent Lab 06/15/21 13:40 Completed TROPONIN Q3H Lab 06/15/21 13:40 Completed TSH, 3RD Generation Urgent Lab 06/15/21 13:40 Completed ALPRAZolam 0.25 MG [xanAX 0.25 MG] Med 06/15/21 15:19 Active 0.25 mg PO Q8H PRN PRN Aspirin EC 325 mg [Ecotrin 325 MG] Med 06/15/21 10:00 Active 325 mg PO DAILY Enoxaparin Sodium [Enoxaparin Sodium] Med 06/15/21 19:00 Active 30 mg SQ Q24H Metoprolol Tartrate 25 mg [Lopressor 25MG Tab] Med 06/15/21 22:00 Active 12.5 mg PO BID Tramadol HCl 50 mg [Ultram 50 mg] Med 06/15/21 10:51 Discontinued 50 mg PO QID PRN PRN EKG DAILY RT 06/16/21 05:00 Completed EKG DAILY RT 06/17/21 05:00 Active EKG DAILY RT 06/18/21 05:00 Active Patient Care Notes (Last 24 hours) 06/15/21 15:00 (created 06/15/21 15:42) Nursing Note by Gracy Garland Patient was made MSOF. Initialized on 06/15/21 15:42 - END OF NOTE 06/15/21 15:00 (created 06/15/21 18:52) Nursing Note by Shawna Nixon Heparin gtt stopped per MD order Initialized on 06/15/21 18:52 - END OF NOTE 06/15/21 14:54 (created 06/15/21 14:50) Nursing Note by Gracy Garland is here rounding on patient now. Initialized on 06/15/21 14:50 - END OF NOTE 06/15/21 14:20 Nursing Note by Shawna Nixon PTT 60.5 No change in heparin gtt. Initialized on 06/15/21 14:20 - END OF NOTE 06/15/21 11:48 Nursing Note by Gracy Garland called back and stated he would be here later today to round on patient for a new consult. Initialized on 06/15/21 11:48 - END OF NOTE 06/15/21 11:36 Nursing Note by Gracy Garland I called 's office to let him know about a consult on the floor. They are paging him. Initialized on 06/15/21 11:36 - END OF NOTE - Vitals & Intake/Output Vital Signs: Vital Signs Temperature 96.9 F 06/16/21 09:00 Pulse Rate 66 06/16/21 09:00 Respiratory Rate 18 06/16/21 09:00 Blood Pressure 95/43 06/16/21 05:00 O2 Sat by Pulse Oximetry 96 06/16/21 09:00 Intake & Output: Intake & Output 06/13/21 06/14/21 06/15/21 06/16/21 11:59 11:59 11:59 11:59 Intake Total 300 830 Output Total 700 1550 Balance -400 -720 Weight 143.2 kg 143.8 kg - Lab Result Diagrams: 06/14/21 18:45 06/14/21 18:45 Lab Results-Last 24 Hrs: Lab Results-Last 24 Hours 06/15/21 06/15/21 06/15/21 Range/Units 13:40 13:40 13:40 APTT 60.5 H (25.1-36.5) SECONDS Troponin I 0.038 H* (0.000-0.034) ng/mL TSH 3rd Generation 1.430 (0.47-4.68) mIU/L - Radiology Exams Ordered Rad Exams-Entire Visit: Radiology Procedures Category Date Time Status CHEST 1 VIEW (PORTABLE) Stat Exams 06/14/21 18:32 Completed CHEST WITHOUT CONTRAST [CT] Stat Exams 06/14/21 20:45 Completed ECHO W/2D AND DOPPLER [US] Routine Exams 06/17/21 07:00 Ordered - Procedures and Test Procedures and Tests throughout Hospitalization: Therapy Orders & Screens 06/15/21 01:28 EKG Q8HX2,QAMX3,PRN Comment: Diagnosis: Chest Pain 06/15/21 07:56 EKG ROUTINE Comment: Diagnosis: Chest Pain 06/16/21 05:00 EKG DAILY Comment: Diagnosis: Chest Pain 06/17/21 05:00 EKG DAILY Comment: Diagnosis: Chest Pain 06/18/21 05:00 EKG DAILY Comment: Diagnosis: Chest Pain Discharge Exam General Appearance: no apparent distress, alert Neurologic Exam: alert, oriented x 3, cooperative, normal mood/affect, nml cerebellar function, sensation nml, No motor deficits Eye Exam: PERRL, EOMI, eyes nml inspection Ears, Nose, Throat Exam: normal ENT inspection, pharynx normal, moist mucous membranes Neck Exam: normal inspection, non-tender, supple, full range of motion Respiratory Exam: normal breath sounds, lungs clear, No respiratory distress Cardiovascular Exam: regular rate/rhythm, normal heart sounds Gastrointestinal/Abdomen Exam: soft, No tenderness, No mass Pelvic Exam: deferred Rectal Exam: deferred Back Exam: normal inspection, normal range of motion, No CVA tenderness, No vertebral tenderness Extremity Exam: normal inspection, normal range of motion Skin Exam: normal color, warm, dry Final Diagnosis/Problem List - Final Discharge Diagnosis/Problem (1) NSTEMI (non-ST elevated myocardial infarction) Current Visit: Yes Status: Resolved Code(s): I21.4 - NON-ST ELEVATION (NSTEMI) MYOCARDIAL INFARCTION (2) Hypertension Current Visit: Yes Status: Chronic Code(s): I10 - ESSENTIAL (PRIMARY) HYPERTENSION - Discharge Discharge Date: 06/16/21 Disposition: Home, Self-Care Condition: Stable Prescriptions: New Metoprolol Tartrate 25 mg [Lopressor 25MG Tab] 12.5 mg PO DAILY #30 tab ALPRAZolam 0.25 MG [xanAX 0.25 MG] 0.25 mg PO Q8H PRN PRN 10 Days #30 tablet PRN Reason: Anxiety Continue Lisinopril/Hydrochlorothiazide [Lisinopril-Hctz 20-12.5 mg Tab] 1 each PO DAILY Additional Instructions: please schedule an outpatient coronary calcium score test as outpatient. if echo is not completed before discharge then schedule it as an outpatient test. Discharge/Care Plan MAURO ROCHE was seen on 06/16/21 in the Hospital. The patient was counseled regarding Diagnosis,Lab results, Imaging studies, need for follow up and when to return to the Emergency Room. Prescriptions given: Discharge Note I have spoken with the patient and/or caregivers. I have explained the patient's condition, diagnosis and treatment plan based on the information available to me at this time. I have answered the patient's and/or caregiver's questions and addressed any concerns. The patient and/or caregivers have as good understanding of the patient's diagnosis, condition and treatment plan as can be expected at this point. The vital signs have been stable. The patient's condition is stable and appropriate for discharge from the emergency department. The patient will pursue further outpatient evaluation with the primary care physician or other designated or consulting physician as outlined in the discharge instructions. The patient and/or caregivers are agreeable to this plan of care and follow-up instructions have been explained in detail. The patient and/or caregivers have received these instruction. The patient/and or caregivers are aware that any significant change in condition or worsening of symptoms should prompt an immediate return to this or the closest emergency department or call 911. Follow up with: JONA MILTON MD [Primary Care Provider] - KASEY PAULSON [ACTIVE STAFF] -
[2021-06-16 12:40] VITALS: BP 135/80; PULSE 84
--- NOTE | 2021-06-17 11:11 | CONS ---
CONSULT DATE: 06/15/2021 BRIEF HISTORY: This is a 70-year-old female who was seen for chest pains and palpitations. The patient states that she has been having intermittent palpitations which is not related to effort and usually relieves spontaneously. However three hours prior to admission while at rest, she started to develop palpitations which she described as "heart racing" associated with some burning sensation in her chest. There was no associated diaphoresis or shortness of breath. No nausea or vomiting. She has never had any myocardial infarction or heart failure in the past. Her mobility is somewhat limited because she is legally blind as complication of glaucoma. CARDIAC RISK FACTORS: Negative for diabetes. Positive for hypertension. No known hyperlipidemia. She does not smoke. 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 RESPIRATORY: No chronic cough or hemoptysis. GI: No history of peptic ulcer or colon disorder. : Negative for dysuria or hematuria. PERIPHERAL VASCULAR: No history of deep vein thrombosis or claudication. SKIN: No active dermatological problems. HEMATOLOGY: No history of blood dyscrasia. CURRENT MEDICATIONS: Aspirin, heparin drip. PHYSICAL EXAMINATION: Her blood pressure is 140/70, heart rate is about 70, respirations of about 14. GENERAL: The patient is an elderly female who is alert, conversant, legally blind who is not in any form of distress and currently chest pain free. HEENT: Unremarkable except for being legally blind. NECK: No significant JVD. CHEST: The breath sounds are clear. CARDIAC: Heart tones are somewhat distant. The rhythm is regular. There is no audible gallop or rub. ABDOMEN: Soft with normal bowel sounds. EXTREMITIES: No significant leg edema with decreased distal pulses. LAB DATA AND DIAGNOSTIC TESTS: Hemoglobin 13.5, PLT 227,000. Serum electrolytes are normal. Liver enzymes are normal. ProBNP 58. Troponin I is 0.061 which is trending down. The initial electrocardiogram shows sinus tachycardia. The electrocardiogram done on 06/15/2021 shows sinus rhythm, no significant ST displacement. IMPRESSION: In essence the patient had a bout of tachycardia which appears to be sinus in origin, need to rule out hypothyroid state. TSH is ordered. An echocardiogram to assess left ventricular systolic function. The mildly elevated troponin I may be due to demand ischemia as a result of the tachycardia. However, will do screening coronary calcium score. I would discontinue the heparin and switch her to prophylactic Lovenox. The patient will started on low dose of beta blockers.
== END 2021-06-16 14:30 | disposition home or self-care (01) ==
LOC: ED 18:20 → ICU 06-15 02:16
PROVIDERS: ADMIT General Practice; ATTEND Family Medicine
DX: I21.4 Non-ST elevation (NSTEMI) myocardial infarction (principal); I10 Essential (primary) hypertension; R00.0 Tachycardia, unspecified; R77.8 Other specified abnormalities of plasma proteins; H54.8 Legal blindness, as defined in USA; E66.9 Obesity, unspecified; Z79.899 Other long term (current) drug therapy; Z20.828 Contact with and (suspected) exposure to other viral communicable diseases
CPT/HCPCS: 0241U; 36000; 36415; 71045; 71250; 80053; 80061; 81001; 82550; 83721; 83880; 84443; 84484; 85025; 85379; 85610; 85730; 93005; 93041; 93268; 96374; 96375; 96376; 99285; G0378; J1644; J1650; J2270; J2405; A9270-GY